=== PATIENT | male | born 1995 | race Two or more races ===

== ENCOUNTER 2017-01-31 18:08 | Emergency (ER) | payer MEDICAID, OTHER ==
--- NOTE | 2017-01-31 19:47 | ER Document Report ---
ED Extremity Problem, Lower - General Chief Complaint: Ankle Pain Stated Complaint: ANKLE PAIN Time Seen by Provider: 01/31/17 19:28 Mode of Arrival: Wheelchair Information source: Patient Notes: 22-year-old male presents to ED for complaint of right ankle pain. Patient states he was drinking last night and he fell injuring his right ankle. He states that every time he had a broken bone in the past he is always called in ahead of time and he knows he has broken his ankle again. TRAVEL OUTSIDE OF THE [place] IN LAST 30 DAYS: No - HPI Patient complains to provider of: Injury, Pain, Swelling Location: Ankle - Right Occurred: Yesterday Where: Outdoors, Public place Onset/Duration: Gradual, Persistent Quality of pain: Achy, Throbbing Severity: Moderate Pain Level: 4 Context: Fell, Twisted Recent injury: Yes Associated symptoms: Painful ambulation Exacerbated by: Movement, Walking Relieved by: Nothing - Related Data Allergies/Adverse Reactions: methylphenidate HCl [From Concerta] Allergy (Verified 01/31/17 18:14) risperidone [From Risperdal] Allergy (Verified 01/31/17 18:14) Past Medical History - General Information source: Patient - Social History Smoking Status: Current Every Day Smoker Cigarette use (# per day): Yes - 3 cigarettes a day Chew tobacco use (# tins/day): No Smoking Education Provided: Yes - Less than 2 minutes Frequency of alcohol use: Occasional Drug Abuse: None 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 denies: COPD , CVA, Malignancy, Thyroid Disfunction Patient has suicidal ideation: No Patient has homicidal ideation: No - Past Medical History Cardiac Medical History: Reports: Hx Hypercholesterolemia Pulmonary Medical History: Reports: Hx Asthma EENT Medical History: Reports: None Neurological Medical History: Reports: None Endocrine Medical History: Reports: None Renal/ Medical History: Reports: None Malignancy Medical History: Reports None GI Medical History: Reports: None Musculoskeltal Medical History: Reports Hx Musculoskeletal Deformity, Reports Hx Musculoskeletal Trauma Skin Medical History: Reports None Psychiatric Medical History: Reports: Hx Anxiety, Hx Attention Deficit Hyperactivity Disorder, Hx Bipolar Disorder, Hx Depression, Hx Obsessive Compulsive Disorder, Hx Post Traumatic Stress Disorder, Other - Internal explosive disorder Traumatic Medical History: Reports: Hx Fractures - Multiple Surgical Hx: Negative Past Surgical History: Reports: None - Immunizations Immunizations up to date: Yes Hx Diphtheria, Pertussis, Tetanus Vaccination: Yes Review of Systems - Review of Systems Constitutional: No symptoms reported EENT: No symptoms reported Cardiovascular: No symptoms reported Respiratory: No symptoms reported Gastrointestinal: No symptoms reported Genitourinary: No symptoms reported Male Genitourinary: No symptoms reported Musculoskeletal: Ankle swelling - Right Skin: Change in color - Ecchymosis right ankle Hematologic/Lymphatic: No symptoms reported Neurological/Psychological: No symptoms reported -: Yes All other systems reviewed and negative Physical Exam - Vital signs Vitals: Temp Pulse Resp BP Pulse Ox 98.4 F 95 18 155/79 H 98 01/31/17 18:14 01/31/17 18:14 01/31/17 18:14 01/31/17 18:14 01/31/17 18:14 Interpretation: Normal - General General appearance: Appears well, Alert - HEENT Head: Normocephalic, Atraumatic Eyes: Normal Pupils: PERRL - Respiratory Respiratory status: No respiratory distress Chest status: Nontender Breath sounds: Normal Chest palpation: Normal - Cardiovascular Rhythm: Regular Heart sounds: Normal auscultation Murmur: No - Abdominal Inspection: Normal Distension: No distension Bowel sounds: Normal Tenderness: Nontender Organomegaly: No organomegaly - Back Back: Normal, Nontender - Extremities General upper extremity: Normal inspection, Nontender, Normal color, Normal ROM , Normal temperature General lower extremity: Normal temperature. No: Annalise's sign Ankle: Tender, Ecchymosis, Edema, Limited ROM. No: Instability, Laceration, Positive Holley's test, Unable to bear weight - Painful ambulation Foot: Tender - Neurological Neuro grossly intact: Yes Cognition: Normal Orientation: AAOx4 Caitlin Coma Scale Eye Opening: Spontaneous [place] Coma Scale Verbal: Oriented Caitlin Coma Scale Motor: Obeys Commands Caitlin Coma Scale Total: 15 Speech: Normal Motor strength normal: LUE, RUE, LLE, RLE Sensory: Normal - Psychological Associated symptoms: Normal affect, Normal mood - Skin Skin Temperature: Warm Skin Moisture: Dry Skin Color: Normal Course - Re-evaluation Re-evalutation: 01/31/17 20:29 X-ray discussed with patient and written report given to patient. Patient was treated with an [place] wrap, stirrup splint, and crutches. Patient was offered ibuprofen instead he did not want it. Instructed patient use ibuprofen over-the -counter for his pain elevate and ice and to follow-up with orthopedics. - Vital Signs Vital signs: Temp Pulse Resp BP Pulse Ox 98.3 F 78 18 113/79 96 01/31/17 20:43 01/31/17 20:43 01/31/17 20:43 01/31/17 20:43 01/31/17 20:43 - Diagnostic Test Radiology reviewed: Image reviewed, Reports reviewed Procedures - Immobilization Right Ankle Time completed: 20:45 Pre-Proc Neuro Vasc Exam: Normal Immobilizer type: Los wrap, Ankle stirrup, Crutches Performed by: PCT Post-Proc Neuro Vasc Exam: Normal Alignment checked and good: Yes Discharge - Discharge Clinical Impression: Right ankle sprain Qualifiers: Encounter type: initial encounter Involved ligament of ankle: unspecified ligament Qualified Code(s): S93.401A - Sprain of unspecified ligament of right ankle, initial encounter Condition: Stable Disposition: HOME, SELF-CARE Additional Instructions: SPRAINED ANKLE: Your sprained ankle results from stretching or tearing of the ligaments which support the ankle. This usually results from twisting the foot inward and under. The ligaments will require time and protection in order to heal properly. Many ankle sprains are quite disabling, and should be taken seriously. The usual treatment for an ankle sprain is cold packs; protection with tape , splints, or wraps; elevation; and staying off the ankle for at least a day. As the ankle improves, you can walk IF it's not painful to bear weight. Sports are best postponed until healing is complete. More serious sprains usually require strengthening exercises after early healing. Your physician has assessed the seriousness of the ligament injury to your ankle. However, the treatment may change, depending on how your ankle progresses. If further exams were recommended, it is important that you follow through. Call the doctor if your foot becomes numb, painful, or severely swollen. LOS WRAP: A compression dressing (los wrap) has been placed. This helps hold the area still. It limits swelling and internal bleeding. The wrap should be comfortably snug -- not tight. You should feel a sense of pressure, but not severe pain under the wrap. Unless the physician tells you otherwise, you can adjust the wrap for comfort. If the wrap causes symptoms suggesting it's too tight -- uncomfortable pressure, swelling or discoloration beyond the wrap, numbness, or severe pain - - you must loosen the wrap. If these symptoms don't resolve promptly, return for re-evaluation. ANKLE STIRRUP SPLINT: You are to use an ankle brace called a stirrup splint. This type of brace allows you to place greater stresses on the ankle without risk of re-injury, and is often used for more severe ankle injuries such as avulsion fractures and ligament ruptures. The splint can be worn over a sock or tape. For proper support, wear the splint with a shoe over it. It's important that the splint fit properly. Adjust the heel tension, if needed. If your splint has air bladders, peel back the bottom of each air bladder, then move the Velcro attachment of the heel strap up or down. Air bladder pressure can be adjusted by pulling up the valve at the top, threading the air tube down into the main bladder, then blowing air into the bladder or squeezing it out. The two sides of the stirrup can be moved forward or back on your ankle by changing the attachment of the main straps. If you are unable to use the ankle comfortably in the splint, return for re -evaluation. USE OF CRUTCHES: The doctor has recommended that you not bear weight at this time. You will need to use crutches. Adjust the crutches so the tops come to about two inches under the armpit while you are standing upright. Use your hands -- not your armpits -- to support your weight. To get into a chair, support yourself with one crutch on the injured side. Hold the chair with the other hand, then lower yourself while putting all your weight on the good leg. Going up stairs is `good leg up, step up, then bring up crutches and bad leg.' Down stairs is `bad leg and crutches down, then bring good leg down.' If you develop numbness or swelling in an arm or hand, you are using the crutches incorrectly. Return if you are having any problems with the crutches. ICE & ELEVATION: Apply ice packs frequently against the painful area. Many different schedules are recommended, such as "20 minutes on, 20 minutes off" or "one hour ice, two hours rest." If you need to work, you may need to go longer between ice treatments. You should plan to have the area ice packed AT LEAST one- fourth of the time. The ice should be applied over the wrap, tape, or splint, or over a layer of cloth -- not directly against the skin. Some ice bags have a built-in cloth and can be put directly on the skin. Your injured part should be elevated as much as possible over the next 48 hours. Try to keep the injury above the level of the heart. Avoid use of the injured area. Elevation and rest will decrease the swelling. USE OF [id number] IBUPROFEN: Ibuprofen (Advil, Nuprin, Medipren, Motrin IB) is a medication for fever and pain control. In addition, it has anti- inflammatory effects which may be beneficial, especially in the treatment of injuries. It's best to take ibuprofen with food. Persons with ulcer disease or allergy to aspirin should notify their physician of this before taking ibuprofen. Ibuprofen can be given every four to six hours, for a total of four doses daily. Age Pain or fever dose Antiinflammatory dose 6-8 yr 200 mg (1 tab) 200 mg (1 tab) 9-11 yr 200 mg (1 tab) 200-400 mg (1-2 tab) 11-14 yr 200-400 mg (1-2 tab) 400 mg (2 tab) 15-adult 400 mg (2 tab) 600 mg (3 tab) ORAL NARCOTIC MEDICATION: You have been given a [place] dispense pack for pain control. This medication is a narcotic. It's best taken with food, as nausea can result if taken on an empty stomach. Don't operate machinery or drive within six hours of taking this medication. Do not combine this medicine with alcohol, or with any medication which can cause sedation (such as cold tablets or sleeping pills) unless you get permission from the physician. Narcotics tend to cause constipation. If possible, drink plenty of fluids and eat a diet high in fiber and fruits. Please be aware that prescription narcotics also have the potential for abuse. People become addicted to these medications because of the general sense of wellbeing that they induce. This feeling along with a significant reduction in tension, anxiety, and aggression provides a stimulating seductive quality to these drugs. Once your pain is under control, we encourage you to discard your unused narcotics. FOLLOW-UP CARE: If you have been referred to a physician for follow-up care, call the physician s office for an appointment as you were instructed or within the next two days. If you experience worsening or a significant change in your symptoms, notify the physician immediately or return to the Emergency Department at any time for re-evaluation. Forms: Elevated Blood Pressure, Smoking Cessation Education, Return to Work Referrals: ANA SANTIAGO MD [ACTIVE STAFF] - Follow up as needed
--- NOTE | 2017-01-31 20:20 | RADIOLOGY REPORT (SQ) ---
EXAM DESCRIPTION: FOOT RIGHT COMPLETE COMPLETED DATE/TIME: 01/31/2017 8:07 pm REASON FOR STUDY: fall pain COMPARISON: 01/10/2015 NUMBER OF VIEWS: Three views. TECHNIQUE: AP, lateral and oblique radiographic images acquired of the right foot. LIMITATIONS: None. FINDINGS: MINERALIZATION: Normal. BONES: No acute fracture or dislocation. No worrisome bone lesions. JOINTS: No effusions. SOFT TISSUES: No soft tissue swelling. No foreign body. OTHER: No other significant finding. IMPRESSION: NEGATIVE STUDY OF THE RIGHT FOOT. NO RADIOGRAPHIC EVIDENCE OF ACUTE INJURY. TECHNICAL DOCUMENTATION: JOB ID: [id number] [email or web address]- All Rights Reserved
--- NOTE | 2017-01-31 20:21 | RADIOLOGY REPORT (SQ) ---
EXAM DESCRIPTION: ANKLE RIGHT COMPLETE COMPLETED DATE/TIME: 01/31/2017 8:07 pm REASON FOR STUDY: fall pain COMPARISON: Right foot films same date NUMBER OF VIEWS: Three views. TECHNIQUE: AP, lateral, and oblique radiographic images acquired of the right ankle. LIMITATIONS: None. FINDINGS: MINERALIZATION: Normal. BONES: No acute fracture or dislocation. No worrisome bone lesions. JOINTS: No effusions. SOFT TISSUES: No soft tissue swelling. No foreign body. OTHER: No other significant finding. IMPRESSION: NEGATIVE STUDY OF THE RIGHT ANKLE. NO RADIOGRAPHIC EVIDENCE OF ACUTE INJURY. TECHNICAL DOCUMENTATION: JOB ID: [id number] [employer]- All Rights Reserved
[2017-01-31 20:45] VITALS: BP 113/79
== END 2017-01-31 20:45 | disposition home or self-care (01) ==
LOC: ER 18:08
DX: S93.401A Sprain of unspecified ligament of right ankle, initial encounter (principal); M25.571 Pain in right ankle and joints of right foot; W19.XXXA Unspecified fall, initial encounter; J45.909 Unspecified asthma, uncomplicated; F17.210 Nicotine dependence, cigarettes, uncomplicated; Z71.6 Tobacco abuse counseling; Z88.8 Allergy status to other drugs, medicaments and biological substances; Z87.81 Personal history of (healed) traumatic fracture
CPT/HCPCS: 99283; 73610; 73630; L1902

== ENCOUNTER 2017-04-12 09:27 | Emergency (ER) | payer SELFPAY ==
[2017-04-12 09:49] VITALS: BP 151/81
--- NOTE | 2017-04-12 10:23 | ER Document Report ---
HPI - HPI Onset/Duration: Persistent Quality of pain: Achy Pain Level: 4 Context: Patient presents complaining of bilateral wrist pain for the past 2 weeks. Patient is right-hand dominant. 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 Patient denies any injury. Patient states pain will occasionally wake him up at night. Associated Symptoms: Other - Bilateral wrist pain Exacerbated by: Movement Relieved by: Remaining still Similar symptoms previously: No Recently seen / treated by doctor: No - ROS ROS below otherwise negative: Yes Systems Reviewed and Negative: Yes All other systems reviewed and negative - CONSTITUTIONAL Constitutional: DENIES: Fever, Chills - EENT EENT: DENIES: Sore Throat, Ear Pain, Eye problems - NEURO Neurology: DENIES: Headache - CARDIOVASCULAR Cardiovascular: DENIES: Chest pain - RESPIRATORY Respiratory: DENIES: Trouble Breathing, Coughing - GASTROINTESTINAL Gastrointestinal: DENIES: Abdominal Pain, Black / Bloody Stools - URINARY Urinary: DENIES: Dysuria, Urgency, Frequency - REPRODUCTIVE Reproductive: DENIES: :, Postmenopausal, Abnormal bleeding / discharge - MUSCULOSKELETAL Musculoskeletal: REPORTS: Extremity pain. 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 denies: COPD , CVA, Malignancy, Thyroid Disfunction Patient has suicidal ideation: No Patient has homicidal ideation: No - Past Medical History Cardiac Medical History: Reports: Hx Hypercholesterolemia Pulmonary Medical History: Reports: Hx Asthma Renal/ Medical History: Denies: Hx Peritoneal Dialysis Musculoskeltal Medical History: Reports Hx Musculoskeletal Deformity, Reports Hx Musculoskeletal Trauma Psychiatric Medical History: Reports: Hx Anxiety, Hx Attention Deficit Hyperactivity Disorder, Hx Bipolar Disorder, Hx Depression, Hx Obsessive Compulsive Disorder, Hx Post Traumatic Stress Disorder Traumatic Medical History: Reports: Hx Fractures - Multiple Past Surgical History: Reports: Hx Orthopedic Surgery - Immunizations Immunizations up to date: Yes Hx Diphtheria, Pertussis, Tetanus Vaccination: Yes Vertical Provider Document - CONSTITUTIONAL Agree With Documented VS: Yes Exam Limitations: No Limitations General Appearance: WD/WN, No Apparent Distress - INFECTION CONTROL TRAVEL OUTSIDE OF THE [place] IN LAST 30 DAYS: No - HEENT HEENT: Atraumatic, Normocephalic - NECK Neck: Normal Inspection, Supple - RESPIRATORY Respiratory: Breath Sounds Normal, No Respiratory Distress O2 Sat by Pulse Oximetry: 97 - CARDIOVASCULAR Cardiovascular: Regular Rate, Regular Rhythm, No Murmur Pulses: Normal: Radial - BACK Back: Normal Inspection - MUSCULOSKELETAL/EXTREMETIES Musculoskeletal/Extremeties: MAEW, FROM, Tender - Bilateral wrist tenderness worse with flexion and extension as well as supination and pronation. No edema , normal skin color and temperature overlying joints. Positive Phalen and Tinel sign., No Edema - NEURO Level of Consciousness: Awake, Alert, Appropriate Motor/Sensory: No Motor Deficit - DERM Integumentary: Warm, Dry Notes: Plantar wart to right foot Course - Re-evaluation Re-evalutation: 04/12/17 10:20 The patient has been informed that they may have pre-hypertension or hypertension based on a blood pressure reading in the emergency department. I recommend that patient call the primary care provider listed on their discharge instructions or a physician of their choice by this week to arrange follow-up for further evaluation of possible pre-hypertension or hypertension. Patient presents with symptoms concerning for overuse injury as well as carpal tunnel syndrome. Will immobilize patient and have him follow-up with orthopedics for further evaluation. - Vital Signs Vital signs: Temp Pulse Resp BP Pulse Ox 98.0 F 78 16 151/81 H 97 04/12/17 09:48 04/12/17 09:48 04/12/17 09:48 04/12/17 09:48 04/12/17 09:48 Procedures - Immobilization Left Wrist Pre-Proc Neuro Vasc Exam: Normal Immobilizer type: Cock-up Performed by: PCT Post-Proc Neuro Vasc Exam: Normal Alignment checked and good: Yes Right Wrist Pre-Proc Neuro Vasc Exam: Normal Immobilizer type: Cock-up Performed by: PCT Post-Proc Neuro Vasc Exam: Normal Alignment checked and good: Yes Discharge - Discharge Clinical Impression: Plantar wart of right foot, Elevated blood pressure reading, Overuse injury Carpal tunnel syndrome Qualifiers: Laterality: bilateral Qualified Code(s): G56.03 - Carpal tunnel syndrome, bilateral upper limbs Condition: Stable Disposition: HOME, SELF-CARE Instructions: Carpal Tunnel Syndrome ([facility]), Plantar Warts ([facility]), Temporary Splint ([facility]) Additional Instructions: Return immediately for any new or worsening symptoms Followup with your primary care provider, call tomorrow to make a followup appointment Follow-up with an orthopedic doctor for further evaluation of bilateral wrist pain. Limit repetitive movements of the wrist Wear splint for the next 4-5 days and then remove. If still having pain follow- up with orthopedics Prescriptions: Naproxen [Naprosyn 250 Nmg Tablet] 1 tab PO BID #14 tablet Forms: Elevated Blood Pressure, Return to Work Referrals: [facility] [Provider Group] - Follow up as needed [facility] [Provider Group] - Follow up in 3-5 days
== END 2017-04-12 10:30 | disposition home or self-care (01) ==
LOC: ER 09:27
DX: G56.03 Carpal tunnel syndrome, bilateral upper limbs (principal); B07.0 Plantar wart; R03.0 Elevated blood-pressure reading, without diagnosis of hypertension; M25.531 Pain in right wrist; M25.532 Pain in left wrist; X50.3XXA Overexertion from repetitive movements, initial encounter; F17.200 Nicotine dependence, unspecified, uncomplicated
CPT/HCPCS: 99283; L3908 ×2

== ENCOUNTER 2018-05-18 09:10 | Emergency (ER) | payer SELFPAY ==
[2018-05-18 09:40] VITALS: BP 153/88
--- NOTE | 2018-05-18 10:27 | ER Document Report ---
ED Hand/Wrist Injury - General Chief Complaint: Hand Pain Stated Complaint: HAND PAIN Time Seen by Provider: 05/18/18 10:10 Primary Care Provider: [facility] [Provider Group] - Follow up as needed Mode of Arrival: Ambulatory Information source: Patient Notes: 23-year-old male presents to ED for complaint of bilateral hand pain as well as wrist pain. He has had this pain multiple times in the past and has been seen multiple times in the past. He states that he had cockup splints applied a year ago and then went to jail since then and and lost them. He states he works in [employer] and at [employer] and does a lot of repetitive motion with his wrist. Patient is alert oriented respirations regular and unlabored speaking in full sentences. TRAVEL OUTSIDE OF THE [place] IN LAST 30 DAYS: No - HPI Injury to: Hand, Wrist Onset: Other - More than a year Timing: Waxing and waning Quality of pain: Achy, Sharp, Other - Shingles at times Severity: Severe - Related Data Allergies/Adverse Reactions: methylphenidate [From Ritalin] Allergy (Verified 05/18/18 09:11) methylphenidate HCl [From Concerta] Allergy (Verified 05/18/18 09:11) risperidone [From Risperdal] Allergy (Verified 05/18/18 09:11) Past Medical History - General Information source: Patient - Social History Smoking Status: Former Smoker Frequency of alcohol use: None Drug Abuse: Marijuana Occupation: [employer] and [employer] Lives with: Family Family History: Arthritis, CAD, DM, Hyperlipidemia, Hypertension. denies: COPD, CVA, Malignancy, Thyroid Disfunction Patient has suicidal ideation: No Patient has homicidal ideation: No - Past Medical History Cardiac Medical History: Reports: Hx Hypercholesterolemia Pulmonary Medical History: Reports: Hx Asthma EENT Medical History: Reports: None Neurological Medical History: Reports: None Endocrine Medical History: Reports: None Renal/ Medical History: Reports: None Malignancy Medical History: Reports None GI Medical History: Reports: None Musculoskeletal Medical History: Reports Hx Musculoskeletal Deformity, Reports Hx Musculoskeletal Trauma Skin Medical History: Reports None Psychiatric Medical History: Reports: Hx Anxiety, Hx Attention Deficit Hyperactivity Disorder, Hx Bipolar Disorder, Hx Depression, Hx Obsessive Compulsive Disorder, Hx Post Traumatic Stress Disorder Traumatic Medical History: Reports: Hx Fractures - Feet, left leg, both hands multiple Infectious Medical History: Reports: None Surgical Hx: Negative Past Surgical History: Reports: None - Immunizations Immunizations up to date: Yes Hx Diphtheria, Pertussis, Tetanus Vaccination: Yes Review of Systems - Review of Systems Constitutional: No symptoms reported EENT: No symptoms reported Cardiovascular: No symptoms reported Respiratory: No symptoms reported Gastrointestinal: No symptoms reported Genitourinary: No symptoms reported Male Genitourinary: No symptoms reported Musculoskeletal: Other - Chronic bilateral hand pain possible carpal tunnel Skin: No symptoms reported Hematologic/Lymphatic: No symptoms reported Neurological/Psychological: No symptoms reported -: Yes All other systems reviewed and negative Physical Exam - Vital signs Vitals: Temp Pulse Resp BP Pulse Ox 98.2 F 89 16 153/88 H 97 05/18/18 09:38 05/18/18 09:38 05/18/18 09:38 05/18/18 09:38 05/18/18 09:38 Interpretation: Normal - General General appearance: Appears well, Alert - HEENT Head: Normocephalic, Atraumatic Eyes: Normal Pupils: PERRL - Respiratory Respiratory status: No respiratory distress Chest status: Nontender Breath sounds: Normal Chest palpation: Normal - Cardiovascular Rhythm: Regular Heart sounds: Normal auscultation Murmur: No - Abdominal Inspection: Normal Distension: No distension Bowel sounds: Normal Tenderness: Nontender Organomegaly: No organomegaly - Back Back: Normal, Nontender - Extremities General upper extremity: Normal color, Normal ROM, Normal temperature General lower extremity: Normal inspection, Nontender, Normal color, Normal ROM, Normal temperature, Normal weight bearing. No: Annalise's sign Wrist: Tender. No: Limited ROM - Pain with range of motion causes pain down the fingers Hand: Tender - Range of motion, No evidence of human bite - Very minimal to right, No evidence of FB - with range of motion, Swelling. No: Abrasion, Deformity, Dislocation, Ecchymosis, Instability, Laceration, Nail injury, Tendon deficit - Neurological Neuro grossly intact: Yes Cognition: Normal Orientation: AAOx4 Caitlin Coma Scale Eye Opening: Spontaneous [place] Coma Scale Verbal: Oriented [place] Coma Scale Motor: Obeys Commands Acworth Coma Scale Total: 15 Speech: Normal Motor strength normal: LUE, RUE, LLE, RLE Sensory: Normal - Psychological Associated symptoms: Normal affect, Normal mood - Skin Skin Temperature: Warm Skin Moisture: Dry Skin Color: Normal Course - Vital Signs Vital signs: Temp Pulse Resp BP Pulse Ox 98.2 F 89 16 153/88 H 97 05/18/18 09:38 05/18/18 09:38 05/18/18 09:38 05/18/18 09:38 05/18/18 09:38 Procedures - Immobilization left wrist Time completed: 10:40 Pre-Proc Neuro Vasc Exam: Normal Immobilizer type: Cock-up Performed by: PCT Post-Proc Neuro Vasc Exam: Normal Alignment checked and good: Yes Right Wrist Time completed: 10:40 Immobilizer type: Cock-up Performed by: PCT Post-Proc Neuro Vasc Exam: Normal Alignment checked and good: Yes Discharge - Discharge Clinical Impression: bilateral hand pain chronic Condition: Stable Disposition: HOME, SELF-CARE Instructions: Family Physicians / Practices Additional Instructions: You were seen today for bilateral hand and wrist pain. You have been seen for this in the past. It is very important that you follow- up with orthopedic to find out the reason for your chronic pain and numbness to the hands. Symptoms sound like carpal tunnel and if it is it needs to be treated. Carpal Tunnel Syndrome Your examination suggests carpal tunnel syndrome. This syndrome is due to pressure on a nerve in the wrist. The pressure may be caused by an old injury, hard work using the wrist, work involving repeated motions of the hand, wrist positions that keep pressure on the joint, or arthritis in the wrist. Typical symptoms are tingling, numbness, and pain in the palm, thumb, index and middle fingers, and one side of the ring finger. Often a splint, ice packs, and antiinflammatory medication make the sy mptoms go away. If the physician feels that your problem is chronic, you will be referred to a specialist for further care. If symptoms do not go away, carpal tunnel syndrome may require surgery. You should call the doctor if pain increases, if you develop difficulty using the thumb or fingers, or if major swelling occurs. Anti-Inflammatory Medication You have received a prescription for an antiinflammatory agent. This is an excellent, safe drug for pain control. In addition, it has potent antiinflammatory effects which are beneficial, especially in the treatment of injuries, arthritis, or tendonitis. It's best to take this medicine with food. Persons with ulcer disease or allergy to aspirin should notify their physician of this before taking this drug. Take the medication exactly as prescribed. Don't take additional doses unless instructed to do so by your doctor. If you develop wheezing, shortness of breath, hives, faintness, stomach pain, vomiting, or dark black stools, return for re-evaluation at once. Splint Precautions A splint has been placed. This will protect the area while healing begins. Your problem does NOT normally require a cast. It MUST, however, be held still! Keep the splint on ALL THE TIME until instructed to remove it by the doctor. As you begin to use the area, be careful. You shouldn't do anything which causes discomfort -- you may disturb the injury even with the splint in place. After the initial period of rest and elevation, if splint does not prevent pain when you move, come back. You may require placement of a different splint, or a cast. If there is unexpected severe pain, or numbness, discoloration, or swelling beyond the splint, you should return at once. If you feel that the splint has broken or become loose, come back. FOLLOW-UP CARE: If you have been referred to a physician for follow-up care, call the physicians office for an appointment as you were instructed or within the next two days. If you experience worsening or a significant change in your symptoms, notify the physician immediately or return to the Emergency Department at any time for re-evaluation. Prescriptions: Naproxen 500 mg PO BIDP PRN #20 tablet PRN Reason: Forms: Elevated Blood Pressure, Smoking Cessation Education, Return to Work Referrals: [facility] [Provider Group] - Follow up as needed
== END 2018-05-18 10:25 | disposition home or self-care (01) ==
LOC: ER 09:10
DX: M79.641 Pain in right hand (principal); M79.642 Pain in left hand; G89.29 Other chronic pain; M25.531 Pain in right wrist; M25.532 Pain in left wrist; J45.909 Unspecified asthma, uncomplicated; Z88.8 Allergy status to other drugs, medicaments and biological substances; Z87.891 Personal history of nicotine dependence
CPT/HCPCS: 99283; L3908 ×2

== ENCOUNTER 2019-08-18 01:22 | Inpatient (IN) | payer MEDICAID ==
[2019-08-18] MEDS ORDERED: PHENYTOIN SODIUM INJ/PF 250 MG/5 ML SDV IV ONE (01:32)
[2019-08-18] MEDS ORDERED: LEVETIRACETAM 1000 MG/NACL-ISO 1,000 MG/100 ML RTUPB IV ONE (01:33)
--- NOTE | 2019-08-18 01:36 | ER Document Report ---
ED General - General Chief Complaint: Overdose Stated Complaint: POSSIBLE OVERDOSE Time Seen by Provider: 08/18/19 01:27 Mode of Arrival: Medic Information source: Emergency Med Personnel Cannot obtain history due to: Intubated, Altered mental status TRAVEL OUTSIDE OF THE [place] IN LAST 30 DAYS: No - HPI Onset: Just prior to arrival Onset/Duration: Sudden Quality of pain: Other - unknown if any pain Associated symptoms: Other - persistent seizure for over 30 min Exacerbated by: Other - IV Drug Use Relieved by: Denies Similar symptoms previously: No Recently seen / treated by doctor: No Notes: 24 year old male with a history of IV Drug Use, Bipolar, Anxiety, PTSD, ADHD, OCD brought to the ER for concern of an IV Drug Overdose. The patient was found unresponsive by his family in a bathroom. The family administered intranasal narcan prior to EMS arrival. The patient apparently started seizing and throwing up after receiving the narcan. The patient had been seizing 20 min prior to EMS arrival and another 10min while EMS was on scene. EMS administered Versed and Ativan which stopped the seizure and they then intubated the patient with Etomidate and Succinylcholine and gave a bolus of Ketamine for sedation. The patient had a fever to 101F with EMS. EMS gave IV fluids and transported the patient to the ER being bagged. - Related Data Allergies/Adverse Reactions: methylphenidate [From Ritalin] Allergy (Verified 05/18/18 09:11) methylphenidate HCl [From Concerta] Allergy (Verified 05/18/18 09:11) risperidone [From Risperdal] Allergy (Verified 05/18/18 09:11) Past Medical History - General Information source: Emergency Med Personnel Cannot obtain history due to: Intubated, Altered mental status - Social History Smoking Status: Unknown if Ever Smoked Frequency of alcohol use: Unknown Drug Abuse: Other - Known IV Drug Abuser per EMS Lives with: Family Family History: Arthritis, CAD, DM, Hyperlipidemia, Hypertension. denies: COPD, CVA, Malignancy, Thyroid Disfunction - Past Medical History Cardiac Medical History: Reports: Hx Hypercholesterolemia Pulmonary Medical History: Reports: Hx Asthma Renal/ Medical History: Denies: Hx Peritoneal Dialysis Musculoskeletal Medical History: Reports Hx Musculoskeletal Deformity, Reports Hx Musculoskeletal Trauma Psychiatric Medical History: Reports: Hx Anxiety, Hx Attention Deficit Hyperactivity Disorder, Hx Bipolar Disorder, Hx Depression, Hx Obsessive Compulsive Disorder, Hx Post Traumatic Stress Disorder Traumatic Medical History: Reports: Hx Fractures - Feet, left leg, both hands multiple Past Surgical History: Reports: Hx Orthopedic Surgery - Immunizations Immunizations up to date: Yes Hx Diphtheria, Pertussis, Tetanus Vaccination: Yes Review of Systems - Review of Systems Constitutional: Fever EENT: No symptoms reported Cardiovascular: No symptoms reported Respiratory: Cough, Other - aspiration Gastrointestinal: Vomiting Genitourinary: No symptoms reported Male Genitourinary: No symptoms reported Musculoskeletal: No symptoms reported Skin: Other - IV Drug Track Oro Hematologic/Lymphatic: No symptoms reported Neurological/Psychological: Seizure, Lost consciousness, Other - Altered -: Yes All other systems reviewed and negative Physical Exam - Vital signs Vitals: Temp 100.9 F H 08/18/19 03:06 - Notes Notes: GENERAL: Intubated on ER arrival being bagged. Sedated and unresponsive. Blood and vomit on shirt. HEAD: Atraumatic, normocephalic. EYES: Pupils equal round and reactive to light, extraocular movements intact, sclera anicteric, conjunctiva are normal. ENT: External Ears normal, nares patent, oropharynx clear without exudates. Moist mucous membranes. NECK: Normal range of motion, supple without lymphadenopathy or JVD. LUNGS: Course bilateral breath sounds clear to auscultation bilaterally and equal. No wheezes rales or rhonchi. HEART: Tachycardic, normal rhythm without murmurs, rubs or gallops. ABDOMEN: Soft, nontender, normoactive bowel sounds. No guarding, no rebound. No masses appreciated. EXTREMITIES: Normal range of motion, no pitting or edema. No clubbing or cyanosis. NEUROLOGICAL: Cranial nerves II through XII grossly intact. Normal speech, normal gait. PSYCH: Normal mood, normal affect. SKIN: Diffuse IV Drug Track Oro Noted otherwise skin is warm, dry, normal turgor, no rashes or lesions noted. Course - Re-evaluation Re-evalutation: 08/18/19 02:03 The patient arrived intubated and sedated and he was tachycardic and febrile. The patient apparently had been using IV Drugs and became unresponsive at home. His family reportedly administered intranasal narcan which woke him up some but the patient started to seize and vomit and he most likely aspirated. The patient has no known seizure history. Patient most likely seizure from rapid drug withdrawal. Fever and elevated WBC and elevated lactic acid could be do to aspiration, IV drug use, or recent seizure. Will administer fluids, broad spectrum antibiotics to cover aspiration and IV drug pathogens, administer rectal tylenol, and will obtain a Head CT. 08/18/19 03:21 Patient required critical care time due to multiple re-evaluations, multiple interventions (fluids, antibiotic, various medications adjustments for sedation), and speaking with the ICU. Patient admitted to ICU for further treatment and care once he was stabilized in the ER. CT head showed no acute process but chest xray concerning for possible right sided infiltrate. - Vital Signs Vital signs: Temp Pulse Resp BP Pulse Ox 100.9 F H 08/18/19 03:06 - Laboratory Result Diagrams: 08/18/19 01:27 08/18/19 01:27 Laboratory results interpreted by me: 08/18/19 08/18/19 08/18/19 01:27 01:27 01:27 WBC 22.4 H Abs Neuts (Manual) 15.7 H Abs Lymphs (Manual) 4.9 H Carbonic Acid ABG pH ABG pCO2 ABG pO2 ABG O2 Saturation Glucose 185 H POC Glucose Lactic Acid 4.4 H AST 132 H ALT 287 H Urine Protein Urine Blood Urine Ascorbic Acid Salicylates < 1.0 L Acetaminophen < 10 L 08/18/19 08/18/19 08/18/19 01:27 01:30 01:47 WBC Abs Neuts (Manual) Abs Lymphs (Manual) Carbonic Acid 1.47 H ABG pH 7.29 L ABG pCO2 48.8 H ABG pO2 158.1 H ABG O2 Saturation 98.8 H Glucose POC Glucose 164 H Lactic Acid AST ALT Urine Protein 100 H Urine Blood SMALL H Urine Ascorbic Acid 20 H Salicylates Acetaminophen - Diagnostic Test Radiology reviewed: Image reviewed, Reports reviewed - EKG Interpretation by Me EKG shows normal: Sinus rhythm, Intervals, QRS Complexes Rate: Tachycardia Rhythm: NSR [place]/QRS: Right axis deviation Additional EKG results interpreted by me: 08/18/19 01:38 q waves in II, III, aVF Critical Care Note - Critical Care Note Total time excluding time spent on procedures (mins): 70 Discharge - Discharge Clinical Impression: Seizure Drug overdose Qualifiers: Encounter type: initial encounter Injury intent: accidental or unintentional Qualified Code(s): T50.901A - Poisoning by unspecified drugs, medicaments and biological substances, accidental (unintentional), initial encounter Fever Qualifiers: Fever type: unspecified Qualified Code(s): R50.9 - Fever, unspecified Aspiration into airway Qualifiers: Encounter type: initial encounter Qualified Code(s): T17.908A - Unspecified foreign body in respiratory tract, part unspecified causing other injury, initial encounter Condition: Critical Disposition: ADMITTED INPATIENT Admitting Provider: Valeria (Cafeteria Manager) Unit Admitted: ICU
[2019-08-18] MEDS: FENTANYL CITRATE INJ/PF 100 MCG/2 ML AMPUL IV PRN (01:42)
[2019-08-18] MEDS ORDERED: MIDAZOLAM 2 MG/2 ML INJ IV ONE (01:48)
[2019-08-18] MEDS: MIDAZOLAM HCL 50 MG/100 ML RTUINJ IV PRN ×2 (01:50→17:43)
[2019-08-18] MEDS ORDERED: FENTANYL CITRATE INJ/PF 100 MCG/2 ML AMPUL IV PRN (01:52)
[2019-08-18] MEDS ORDERED: ACETAMINOPHEN 325 MG SUPP.RECT PR ONE (01:53)
[2019-08-18] MEDS: NORMAL SALINE 1000 ML 1,000 ML IV PRN ×2 (02:00→03:06)
[2019-08-18 02:02] LABS: INTERNATIONAL RATION (INR) 1.05; PROTHROMBIN TIME 13.7 SEC (11.4-15.4)
[2019-08-18 02:03] LABS: HEMATOCRIT 47.6 % (37.9-51.0); HEMOGLOBIN 16.7 g/dL (13.5-17.0); MEAN CORPUSCULAR HEMOGLOBIN 31.7 pg (27.0-33.4); MEAN CORPUSCULAR HGB CONC 35.1 g/dL (32.0-36.0); MEAN CORPUSCULAR VOLUME 90 fl (80-97); PLATELET COUNT 345 10^3/uL (150-450); RED BLOOD COUNT 5.26 10^6/uL (4.35-5.55); RED CELL DISTRIBUTION WIDTH 12.9 % (11.5-14.0); WHITE BLOOD COUNT 22.4 10^3/uL (4.0-10.5)
[2019-08-18 02:09] LABS: APPEARANCE,URINE CLOUDY; BILIRUBIN,URINE NEGATIVE (NEGATIVE); COLOR,URINE YELLOW; GLUCOSE, URINE NEGATIVE (NEGATIVE); KETONES,URINE NEGATIVE (NEGATIVE); PROTEIN,URINE 100 mg/dL (NEGATIVE); UROBILINOGEN,URINE NEGATIVE mg/dL (<2.0)
[2019-08-18] MEDS ORDERED: VANCOMYCIN HCL INJ 1000 MG VIAL IV ONE (02:11)
[2019-08-18] MEDS ORDERED: PIPERACILLIN/TAZOBACTAM 3.375 GM VIAL IV ONE ×2 (02:11→05:40)
[2019-08-18 02:16] LABS: ALBUMIN 4.8 g/dL (3.5-5.0); ALKALINE PHOSPHATASE 80 U/L (38-126); ANION GAP 14 (5-19); ASPARTATE AMINO TRANSFERASE 132 U/L (17-59); BILIRUBIN,TOTAL 0.4 mg/dL (0.2-1.3); BLOOD UREA NITROGEN 18 mg/dL (7-20); CALCIUM 9.3 mg/dL (8.4-10.2); CARBON DIOXIDE 22 mmol/L (22-30); CHLORIDE 103 mmol/L (98-107); GLUCOSE 185 mg/dL (75-110); POTASSIUM 3.9 mmol/L (3.6-5.0); TOTAL PROTEIN 8.2 g/dL (6.3-8.2)
[2019-08-18 02:17] LABS: ACETAMINOPHEN < 10 ug/mL (10-30); ALCOHOL < 10 mg/dL (NONE DETECTED); SALICYLATE < 1.0 mg/dL (2.0-20.0)
[2019-08-18 02:26] LABS: URINE AMPHETAMINES SCREEN NEGATIVE; URINE BARBITURATES SCREEN NEGATIVE; URINE COCAINE SCREEN NEGATIVE; URINE MARIJUANA (THC) SCREEN NEGATIVE; URINE METHADONE SCREEN NEGATIVE; URINE PHENCYCLIDINE SCREEN NEGATIVE
[2019-08-18 02:27] LABS: ABSOLUTE LYMPHOCYTES# (MANUAL) 4.9 10^3/uL (0.5-4.7); ABSOLUTE MONOCYTES # (MANUAL) 1.3 10^3/uL (0.1-1.4); BASOPHILS % (MANUAL) 1 % (0-2); EOSINOPHILS % (MANUAL) 1 % (0-6); LYMPHOCYTES % (MANUAL) 20 % (13-45); MONOCYTES % (MANUAL) 6 % (3-13); SEGMENTED NEUTROPHILS % (MAN) 70 % (42-78); TOTAL CELLS COUNTED 100
[2019-08-18 02:28] LABS: PLATELET COMMENT ADEQUATE
--- NOTE | 2019-08-18 02:28 | RADIOLOGY REPORT (SQ) ---
CHEST 1 VIEW on 08/18/2019 at 2:10 AM CLINICAL INDICATION: Intubated, aspiration COMPARISON: None FINDINGS: ET tube tip is in the mid thoracic trachea approximately 3.1 cm above the level of the adali. NG tube extends into the upper stomach in good position. Heart is upper limits normal for size. Hilar and mediastinal contours are within normal limits. There is minimal opacity in the right midlung consistent with atelectasis or early pneumonia. The lungs are otherwise clear. No bony abnormality is noted. IMPRESSION: Mild atelectasis or early pneumonia in the right midlung.
[2019-08-18 02:30] LABS: URINE BENZODIAZEPINES SCREEN UNCONFIRMED POSITIVE
[2019-08-18 02:46] LABS: ARTERIAL BLOOD BASE EXCESS -3.9 mmol/L; ARTERIAL BLOOD H2CO3 1.47 mmol/L (1.05-1.35); ARTERIAL BLOOD HCO3 23.2 mmol/L (20-24); ARTERIAL BLOOD O2 SATURATION 98.8 % (94-98); ARTERIAL BLOOD PCO2 48.8 mmHg (35-45); ARTERIAL BLOOD PH 7.29 (7.35-7.45); ARTERIAL BLOOD PO2 158.1 mmHg (80-100); ARTERIAL BLOOD TOTAL CO2 24.6 mmol/L (23-27)
[2019-08-18 02:47] LABS: ARTERIAL BLOOD FIO2 100%
--- NOTE | 2019-08-18 03:08 | RADIOLOGY REPORT (SQ) ---
EXAM DESCRIPTION: CT HEAD WITHOUT IV CONTRAST COMPLETED DATE/TME: 08/18/2019 01:31 CLINICAL HISTORY: 24 years Male, eval for cause of seizure and AMS. hx of IV drug injection vicodin COMPARISON: 03/18/14 TECHNIQUE: No contrast. Coronal and sagittal reformat. This exam was performed according to our departmental dose-optimization program, which includes automated exposure control, adjustment of the mA and/or kV according to patient size and/or use of iterative reconstruction technique. FINDINGS: No hemorrhage or infarct. No mass, mass effect, or midline shift. Endotracheal tube and enteric tube partially imaged. Small ventricles, chronic, probably developmental. Brain and extra-axial structures appear otherwise intact. IMPRESSION: No acute findings.
[2019-08-18] MEDS ORDERED: NORMAL SALINE 1000 ML 1,000 ML IV ONE (04:21)
[2019-08-18] MEDS ORDERED: FENTANYL CITRATE INJ/PF 100 MCG/2 ML AMPUL IV ONE ×4 (04:35→12:30)
--- NOTE | 2019-08-18 05:31 | CRITICAL CARE ADMISSION REPORT ---
<EVELYN DEAN - Last Filed: 08/18/19 05:27> HPI Date:: 08/18/19 Time:: 05:00 Reason for ICU Reason:: Respiratory failure, opioid overdose. Admission Date/Time & PCP: 24-year-old male, history of IV DA, bipolar disorder, PTSD, ADHD, OCD. Patient was found unresponsive by his family who administered intranasal Narcan. Following administration, he began seizing for 20 minutes prior to EMS arrival and continued for 10 additional minutes in the presence of EMS. EMS administered Versed and Ativan and he was intubated for airway protection and respiratory failure. He did vomit prior to intubation. Patient was febrile and upon arrival to the ED, had a WBC of 22 and lactate level of 4.4. CT of his head was negative for any acute pathology. Possible right sided atelectasis versus infiltrates on chest x-ray. Patient is being admitted to the intensive care unit for respiratory failure in the setting of narcotic overdose and seizures. - Diagnosis/Plan (1) Respiratory failure requiring intubation Is this a current diagnosis for this admission?: Yes Plan: Respiratory failure secondary to narcotic overdose. * Continue mechanical ventilation and wean as tolerated over the next several hours if possible. * Hold any sedation in the absence of seizure activity. * CXR in a.m. * Obtain ABG and titrate vent settings accordingly. (2) Drug overdose Qualifiers: Encounter type: initial encounter Injury intent: accidental or unintentional Qualified Code(s): T50.901A - Poisoning by unspecified drugs, medicaments and biological substances, accidental (unintentional), initial encounter Is this a current diagnosis for this admission?: Yes Plan: * Continue to hold sedation. * We will hold any Narcan given his secure airway and ventilation. (3) Fever Qualifiers: Fever type: unspecified Qualified Code(s): R50.9 - Fever, unspecified Is this a current diagnosis for this admission?: Yes Plan: Origin of patient's fever is unknown, however, he does have evidence and suspicion for aspiration pneumonia. * Obtain blood and sputum cultures. * Continue empiric antibiotics until culture/sensitivity resulted. * CBC in a.m. (4) Seizure Is this a current diagnosis for this admission?: Yes Plan: Seizure activity followed Narcan administration of unknown dose. CT scan negative for any acute pathology. * Continue Ativan as needed for any further seizures. Past Medical History Cardiac Medical History: Reports: Hyperlipidema Pulmonary Medical History: Reports: Asthma Psychiatric Medical History: Reports: Attention Deficit Hyperactivity Disorder, Bipolar Disorder, Depression, Post Traumatic Stress Disorder Psychiatric History Note: IV drug abuse history. Past Surgical History Past Surgical History: Reports: Orthopedic Surgery Social/Family History - Social History Lives with: Family Smoking Status: Unknown if Ever Smoked Drugs: Other - IVDA, details unknown at this time. - Medication/Allergies Home Medications: No Home Medications 08/18/19 Allergies/Adverse Reactions: methylphenidate [From Ritalin] Allergy (Verified 05/18/18 09:11) methylphenidate HCl [From Concerta] Allergy (Verified 05/18/18 09:11) risperidone [From Risperdal] Allergy (Verified 05/18/18 09:11) Review of Systems ROS unobtainable: Due to endotracheal tube Physical Exam Vital Signs: Temp Pulse Resp BP Pulse Ox 100.8 F H 14 164/91 H 100 08/18/19 03:26 08/18/19 03:26 08/18/19 03:26 08/18/19 03:26 Intake & Output 08/16/19 08/17/19 08/18/19 06:59 06:59 06:59 Intake Total 2101 Balance 2101 Weight 112.9 kg Weight/Height Weight 112.9 kg Height 6 ft General appearance: PRESENT: no acute distress Head exam: PRESENT: normocephalic, other - Dried blood seen around his lips, nose and on the side of his head. Eye exam: PRESENT: EOMI, PERRLA Ear exam: PRESENT: normal external ear exam. ABSENT: bleeding Mouth exam: PRESENT: dry mucosa, neck supple, tongue midline Neck exam: PRESENT: full ROM. ABSENT: carotid bruit Respiratory exam: PRESENT: clear to auscultation ruben. ABSENT: crackles, rhonchi, tachypnea, wheezes Cardiovascular exam: PRESENT: RRR, +S1, +S2 Pulses: PRESENT: normal carotid pulses, +2 pedal pulses bilateral Vascular exam: PRESENT: normal capillary refill GI/Abdominal exam: PRESENT: hypoactive bowel sounds, soft Extremities exam: ABSENT: joint swelling, pedal edema Musculoskeletal exam: PRESENT: full ROM, normal inspection Neurological exam: PRESENT: CN II-XII grossly intact, other - Responds to discomfort. Skin exam: PRESENT: intact Tubes/Lines: PRESENT: Endotracheal Tube Laboratory/Radiographs Laboratory Results: 08/18/19 01:27 08/18/19 01:27 08/18/19 08/18/19 08/18/19 01:27 01:27 01:27 WBC 22.4 H RBC 5.26 Hgb 16.7 Hct 47.6 MCV 90 MCH 31.7 MCHC 35.1 RDW 12.9 Plt Count 345 Seg Neutrophils % Not Reportable Carbonic Acid HCO3/H2CO3 Ratio ABG pH ABG pCO2 ABG pO2 ABG HCO3 ABG O2 Saturation ABG Base Excess FiO2 Sodium 139.2 Potassium 3.9 Chloride 103 Carbon Dioxide 22 Anion Gap 14 BUN 18 Creatinine 1.05 Est GFR ( Amer) > 60 Glucose 185 H Lactic Acid 4.4 H Calcium 9.3 Total Bilirubin 0.4 AST 132 H Alkaline Phosphatase 80 Total Protein 8.2 Albumin 4.8 Urine Color Urine Appearance Urine pH Ur Specific [place] Urine Protein Urine Glucose (UA) Urine Ketones Urine Blood Urine RBC (Auto) 08/18/19 08/18/19 01:27 01:47 WBC RBC Hgb Hct MCV MCH MCHC RDW Plt Count Seg Neutrophils % Carbonic Acid 1.47 H HCO3/H2CO3 Ratio 15:1 ABG pH 7.29 L ABG pCO2 48.8 H ABG pO2 158.1 H ABG HCO3 23.2 ABG O2 Saturation 98.8 H ABG Base Excess -3.9 FiO2 100% Sodium Potassium Chloride Carbon Dioxide Anion Gap BUN Creatinine Est GFR ( Amer) Glucose Lactic Acid Calcium Total Bilirubin AST Alkaline Phosphatase Total Protein Albumin Urine Color YELLOW Urine Appearance CLOUDY Urine pH 5.0 Ur Specific [place] 1.020 Urine Protein 100 H Urine Glucose (UA) NEGATIVE Urine Ketones NEGATIVE Urine Blood SMALL H Urine RBC (Auto) 1 08/18/19 01:27 Troponin I 0.047 Impressions: Chest X-Ray 08/18/19 01:31 IMPRESSION: Mild atelectasis or early pneumonia in the right midlung. Head CT 08/18/19 01:31 IMPRESSION: No acute findings. All labs, radiographs, diagnostic studies and EKGs were personally reviewed: Yes In addition, reports of radiographic and diagnostic studies were read: Yes Critical Time Critical Time (minutes): 70 -: The care of a critically ill patient is dynamic. This note represents a static moment in the admission process. Orders and treatments may be given simultaneously and urgently, and time is not veterans employment representative of the treatment process. This patient requires Critical Care secondary to life threatening organ or limb dysfunction. Without Critical Care services, the patient is at risk for increased mortality and morbidity. <YESENIA SILVEIRA - Last Filed: 08/18/19 18:39> HPI Admission Date/Time & PCP: Admission Date/Time: 08/18/19 03:34 Primary Care Provider: Plan Summary: I personally saw and evaluated the patient after admission by LUCERO Dean. Agree with plans, findings and care. Attempted EEG was thwarted by patient agitation and this was aborted. We will continue to monitor in the ICU for seizure. We will also monitor for appropriateness for vent liberation. Track cruz noted on the left antecubital and patient is right-handed. Patient is legally but has asked us to speak to his mother. Patient is adopted and has a longstanding history of psychiatric disorders in addition to combined effects of recreational drug use. We will transition to Precedex and attempt to wean the ventilator. Watch for seizures. Physical Exam Vital Signs: Temp Pulse Resp BP Pulse Ox 101.1 F H 73 15 99/52 L 99 08/18/19 12:00 08/18/19 18:00 08/18/19 18:00 08/18/19 18:00 08/18/19 18:00 Intake & Output 08/17/19 08/18/19 08/19/19 06:59 06:59 06:59 Intake Total 2101 155 Output Total 45 870 Balance 6 -715 Weight 107.5 kg Weight/Height Weight 107.5 kg Height 5 ft 7 in Laboratory/Radiographs Laboratory Results: 08/18/19 01:27 08/18/19 01:27 08/18/19 08/18/19 08/18/19 01:27 01:27 01:27 WBC 22.4 H RBC 5.26 Hgb 16.7 Hct 47.6 MCV 90 MCH 31.7 MCHC 35.1 RDW 12.9 Plt Count 345 Seg Neutrophils % Not Reportable Carbonic Acid HCO3/H2CO3 Ratio ABG pH ABG pCO2 ABG pO2 ABG HCO3 ABG O2 Saturation ABG Base Excess FiO2 Sodium 139.2 Potassium 3.9 Chloride 103 Carbon Dioxide 22 Anion Gap 14 BUN 18 Creatinine 1.05 Est GFR ( Amer) > 60 Glucose 185 H Lactic Acid 4.4 H Calcium 9.3 Total Bilirubin 0.4 AST 132 H Alkaline Phosphatase 80 Ammonia Total Protein 8.2 Albumin 4.8 Urine Color Urine Appearance Urine pH Ur Specific [place] Urine Protein Urine Glucose (UA) Urine Ketones Urine Blood Urine RBC (Auto) 08/18/19 08/18/19 08/18/19 01:27 01:47 06:15 WBC RBC Hgb Hct MCV MCH MCHC RDW Plt Count Seg Neutrophils % Carbonic Acid 1.47 H HCO3/H2CO3 Ratio 15:1 ABG pH 7.29 L ABG pCO2 48.8 H ABG pO2 158.1 H ABG HCO3 23.2 ABG O2 Saturation 98.8 H ABG Base Excess -3.9 FiO2 100% Sodium Potassium Chloride Carbon Dioxide Anion Gap BUN Creatinine Est GFR ( Amer) Glucose Lactic Acid 3.3 H Calcium Total Bilirubin AST Alkaline Phosphatase Ammonia Total Protein Albumin Urine Color YELLOW Urine Appearance CLOUDY Urine pH 5.0 Ur Specific [place] 1.020 Urine Protein 100 H Urine Glucose (UA) NEGATIVE Urine Ketones NEGATIVE Urine Blood SMALL H Urine RBC (Auto) 1 08/18/19 08/18/19 08/18/19 06:50 09:40 13:51 WBC RBC Hgb Hct MCV MCH MCHC RDW Plt Count Seg Neutrophils % Carbonic Acid 1.31 HCO3/H2CO3 Ratio 19:1 ABG pH 7.38 ABG pCO2 43.4 ABG pO2 84.9 ABG HCO3 25.1 H ABG O2 Saturation 96.2 ABG Base Excess -0.2 FiO2 40% Sodium Potassium Chloride Carbon Dioxide Anion Gap BUN Creatinine Est GFR ( Amer) Glucose Lactic Acid 3.1 H Calcium Total Bilirubin AST Alkaline Phosphatase Ammonia 9.5 Total Protein Albumin Urine Color Urine Appearance Urine pH Ur Specific [place] Urine Protein Urine Glucose (UA) Urine Ketones Urine Blood Urine RBC (Auto) 08/18/19 14:35 WBC RBC Hgb Hct MCV MCH MCHC RDW Plt Count Seg Neutrophils % Carbonic Acid 1.22 HCO3/H2CO3 Ratio 21:1 ABG pH 7.43 ABG pCO2 40.4 ABG pO2 112.9 H ABG HCO3 26.3 H ABG O2 Saturation 98.2 H ABG Base Excess 1.9 FiO2 40% Sodium Potassium Chloride Carbon Dioxide Anion Gap BUN Creatinine Est GFR ( Amer) Glucose Lactic Acid Calcium Total Bilirubin AST Alkaline Phosphatase Ammonia Total Protein Albumin Urine Color Urine Appearance Urine pH Ur Specific [place] Urine Protein Urine Glucose (UA) Urine Ketones Urine Blood Urine RBC (Auto) 08/18/19 01:27 Troponin I 0.047 Impressions: Chest X-Ray 08/18/19 01:31 IMPRESSION: Mild atelectasis or early pneumonia in the right midlung. Head CT 08/18/19 01:31 IMPRESSION: No acute findings. Critical Time -: The care of a critically ill patient is dynamic. This note represents a static moment in the admission process. Orders and treatments may be given simultaneously and urgently, and time is not veterans employment representative of the treatment process. This patient requires Critical Care secondary to life threatening organ or limb dysfunction. Without Critical Care services, the patient is at risk for inc reased mortality and morbidity.
[2019-08-18] MEDS ORDERED: IPRATROPIUM/ALBUTEROL 0.5-2.5 MG/3 ML AMPUL NEB PRN (05:37)
[2019-08-18] MEDS: RINGERS SOLUTION,LACTATED 1,000 ML IV PRN (05:44)
[2019-08-18] MEDS: HEPARIN SOD (PORCINE) 5,000 UNIT/ML 1 ML VIAL SUBCUT SCH ×3 (06:05→21:25)
[2019-08-18 07:09] LABS: ARTERIAL BLOOD BASE EXCESS -0.2 mmol/L; ARTERIAL BLOOD FIO2 40%; ARTERIAL BLOOD H2CO3 1.31 mmol/L (1.05-1.35); ARTERIAL BLOOD HCO3 25.1 mmol/L (20-24); ARTERIAL BLOOD O2 SATURATION 96.2 % (94-98); ARTERIAL BLOOD PCO2 43.4 mmHg (35-45); ARTERIAL BLOOD PH 7.38 (7.35-7.45); ARTERIAL BLOOD PO2 84.9 mmHg (80-100); ARTERIAL BLOOD TOTAL CO2 26.4 mmol/L (23-27)
--- NOTE | 2019-08-18 09:41 | EKG REPORT ---
SEVERITY:- BORDERLINE ECG - SINUS TACHYCARDIA BORDERLINE RIGHT AXIS DEVIATION INFERIOR Q WAVES, PROBABLY NORMAL VARIATION MINIMAL ST DEPRESSION, INFERIOR LEADS : Confirmed by: Francisco J Rooney MD 18-Aug-2019 09:41:15
[2019-08-18] MEDS ORDERED: FENTANYL CITRATE INJ/PF 100 MCG/2 ML AMPUL ONE ×2 (10:19→11:48)
[2019-08-18] MEDS: FAMOTIDINE INJ/PF 20 MG/2 ML SDV IV SCH ×2 (10:24→21:25)
[2019-08-18] MEDS: DEXMEDETOMIDINE IN 0.9 % NACL 400 MCG/100 ML RTUPB IV PRN ×3 (12:21→19:10)
[2019-08-18 14:57] LABS: ARTERIAL BLOOD BASE EXCESS 1.9 mmol/L; ARTERIAL BLOOD FIO2 40%; ARTERIAL BLOOD H2CO3 1.22 mmol/L (1.05-1.35); ARTERIAL BLOOD HCO3 26.3 mmol/L (20-24); ARTERIAL BLOOD O2 SATURATION 98.2 % (94-98); ARTERIAL BLOOD PCO2 40.4 mmHg (35-45); ARTERIAL BLOOD PH 7.43 (7.35-7.45); ARTERIAL BLOOD PO2 112.9 mmHg (80-100); ARTERIAL BLOOD TOTAL CO2 27.6 mmol/L (23-27)
[2019-08-19] MEDS: DEXMEDETOMIDINE IN 0.9 % NACL 400 MCG/100 ML RTUPB IV PRN ×3 (00:31→13:40)
[2019-08-19] MEDS: RINGERS SOLUTION,LACTATED 1,000 ML IV PRN (00:31)
[2019-08-19] MEDS: FENTANYL CITRATE INJ/PF 100 MCG/2 ML AMPUL IV PRN ×2 (01:13→11:04)
[2019-08-19 04:42] LABS: HEMATOCRIT 37.4 % (37.9-51.0); MEAN CORPUSCULAR HEMOGLOBIN 31.4 pg (27.0-33.4); MEAN CORPUSCULAR HGB CONC 34.3 g/dL (32.0-36.0); MEAN CORPUSCULAR VOLUME 92 fl (80-97); PLATELET COUNT 177 10^3/uL (150-450); RED BLOOD COUNT 4.07 10^6/uL (4.35-5.55); RED CELL DISTRIBUTION WIDTH 12.9 % (11.5-14.0); WHITE BLOOD COUNT 11.4 10^3/uL (4.0-10.5)
[2019-08-19 04:43] LABS: HEMOGLOBIN 12.8 g/dL (13.5-17.0)
[2019-08-19 04:58] LABS: ALBUMIN 3.4 g/dL (3.5-5.0); ALKALINE PHOSPHATASE 55 U/L (38-126); ASPARTATE AMINO TRANSFERASE 112 U/L (17-59); BILIRUBIN,DIRECT 0.1 mg/dL (0.0-0.4); BILIRUBIN,TOTAL 1.4 mg/dL (0.2-1.3); BLOOD UREA NITROGEN 19 mg/dL (7-20); CALCIUM 8.7 mg/dL (8.4-10.2); GLUCOSE 100 mg/dL (75-110); PHOSPHORUS 2.7 mg/dL (2.5-4.5); POTASSIUM 4.5 mmol/L (3.6-5.0); TOTAL PROTEIN 6.3 g/dL (6.3-8.2)
[2019-08-19 05:02] LABS: CARBON DIOXIDE 29 mmol/L (22-30); CHLORIDE 106 mmol/L (98-107)
[2019-08-19 05:10] LABS: ANION GAP 3 (5-19)
[2019-08-19] MEDS: HEPARIN SOD (PORCINE) 5,000 UNIT/ML 1 ML VIAL SUBCUT SCH ×3 (05:11→21:57)
[2019-08-19] MEDS: ACETAMINOPHEN 325 MG TABLET PO PRN ×2 (05:12→13:46)
[2019-08-19 06:57] LABS: ARTERIAL BLOOD FIO2 30%; ARTERIAL BLOOD H2CO3 1.28 mmol/L (1.05-1.35); ARTERIAL BLOOD HCO3 26.8 mmol/L (20-24); ARTERIAL BLOOD O2 SATURATION 92.6 % (94-98); ARTERIAL BLOOD PCO2 42.5 mmHg (35-45); ARTERIAL BLOOD PH 7.42 (7.35-7.45); ARTERIAL BLOOD PO2 63.5 mmHg (80-100); ARTERIAL BLOOD TOTAL CO2 28.1 mmol/L (23-27)
--- NOTE | 2019-08-19 08:37 | RADIOLOGY REPORT (SQ) ---
EXAM DESCRIPTION: CHEST SINGLE VIEW IMAGES COMPLETED DATE/TIME: 08/19/2019 6:30 am REASON FOR STUDY: aspiration COMPARISON: 08/18/2019. EXAM PARAMETERS: NUMBER OF VIEWS: One view. TECHNIQUE: Single frontal radiographic view of the chest acquired. RADIATION DOSE: NA LIMITATIONS: None. FINDINGS: LUNGS AND PLEURA: Faint opacity in the mid right lung has resolved. Mild diffuse intersti tial prominence. MEDIASTINUM AND HILAR STRUCTURES: No masses. Contour normal. HEART AND VASCULAR STRUCTURES: Mild cardiac enlargement. BONES: No acute findings. HARDWARE: Stable endotracheal tube and nasogastric tube. OTHER: No other significant finding. IMPRESSION: FAINT DENSITY IN THE MID RIGHT LUNG HAS RESOLVED. OTHERWISE UNCHANGED. TECHNICAL DOCUMENTATION: JOB ID: [id number] 2010 [email or web address]- All Rights Reserved Reading location - IP/workstation name: [email or web address]
[2019-08-19] MEDS: FAMOTIDINE INJ/PF 20 MG/2 ML SDV IV SCH (09:35)
[2019-08-19] MEDS ORDERED: LEVETIRACETAM 1000 MG/NACL-ISO 1,000 MG/100 ML RTUPB IV SCH (14:30)
[2019-08-19] MEDS ORDERED: VANCOMYCIN HCL 0 MG in DEXTROSE 5%-WATER 250 ML IV NR (16:15)
--- NOTE | 2019-08-19 16:33 | PDOC CRITICAL CARE PROG REPORT ---
General Date:: 08/19/19 ICU Day:: 2 Ventilator Day:: 2 Hospital Day:: 2 Resuscitation Status: Full Code Medical Power of Retail Salesman: , Cindy, Events in the past 12 to 24 Hours:: 08.19.2019: Patient has continued to improve and has been no seizures. He was placed on SBT and after multiple evaluations for suitability was able to be weaned and extubated. After suitable time. For arousal discussion was carried out with the patient. He actually denies any narcotic or drug use. When disclosing that we found narcotics in his urine he is unaware of while he would be there and the consensus is this may be from the emergency room interventions. He does endorse and disclose that he has a seizure disorder but has not been taking his medications. His Cindy endorses this as well. In light of this he was reloaded with Keppra and placed on twice daily Keppra. He states that due to insurance reasons he has not been able to take his medications. Review of systems relevant to events:: 08.19.2019: He denies any chest pain or shortness of breath at this time. He is somewhat lethargic but is able to answer questions. He has no headache. No notable seizure activity per nursing Reason for ICU Addmission:: Respiratory failure, opioid overdose. Physical Exam Vital Signs: Temp Pulse Resp BP Pulse Ox 100.0 F 104 H 32 H 105/92 H 93 08/19/19 12:00 08/19/19 14:03 08/19/19 14:03 08/19/19 14:00 08/19/19 14:03 Intake & Output 08/18/19 08/19/19 08/20/19 06:59 06:59 06:59 Intake Total 2101 1383 1151 Output Total 45 1830 380 Balance 2056 -400 771 Weight 107.5 kg 107.1 kg Weight/Height Weight 107.1 kg Height 5 ft 7 in General appearance: PRESENT: no acute distress, obese, well-developed Exam: Multiple evaluations both prior to liberation from mechanical ventilation and after. He is an obese older appearing 24-year-old male no active distress. He is responsive and following commands and can lift his head off the bed. This carried through during liberation from mechanical ventilation and multiple follow-up examinations. Head exam: PRESENT: atraumatic, normocephalic Eye exam: PRESENT: conjunctival injection, conjunctiva pink, EOMI, PERRLA. ABSENT: nystagmus, scleral icterus Mouth exam: PRESENT: moist, neck supple Teeth exam: PRESENT: poor dentation Neck exam: ABSENT: carotid bruit, JVD, lymphadenopathy, meningismus, thyromegaly, tracheal deviation Respiratory exam: PRESENT: clear to auscultation ruben, unlabored. ABSENT: accessory muscle use, rales, rhonchi, tachypnea, wheezes Cardiovascular exam: PRESENT: RRR, +S1, +S2 Pulses: PRESENT: +2 pedal pulses bilateral Vascular exam: PRESENT: normal capillary refill. ABSENT: pallor GI/Abdominal exam: PRESENT: normal bowel sounds, soft. ABSENT: ascites, distended, guarding, mass, organolmegaly, rebound, tenderness Rectal exam: PRESENT: deferred Gentrourinary exam: PRESENT: indwelling catheter Extremities exam: PRESENT: +1 edema. ABSENT: tenderness Musculoskeletal exam: ABSENT: deformity, dislocation Neurological exam: PRESENT: altered, oriented to person, oriented to situation, CN II-XII grossly intact, other. ABSENT: motor sensory deficit, aphasic Psychiatric exam: PRESENT: flat affect Focused psych exam: ABSENT: pressured speech, psychomotor agitation, restlessness Skin exam: PRESENT: dry, intact, warm. ABSENT: cyanosis, rash Tubes/Lines: PRESENT: Endotracheal Tube, Other - Shay type urinary catheter, orogastric tube Laboratory/Radiographs Laboratory Results: 08/19/19 04:24 08/19/19 04:24 08/18/19 08/18/19 08/19/19 19:02 19:02 04:24 WBC 11.4 H RBC 4.07 L Hgb 12.8 L D Hct 37.4 L MCV 92 MCH 31.4 MCHC 34.3 RDW 12.9 Plt Count 177 Carbonic Acid HCO3/H2CO3 Ratio ABG pH ABG pCO2 ABG pO2 ABG HCO3 ABG O2 Saturation ABG Base Excess FiO2 Sodium Potassium Chloride Carbon Dioxide Anion Gap BUN Creatinine Est GFR ( Amer) Glucose Lactic Acid 1.3 Calcium Phosphorus Magnesium Total Bilirubin AST Alkaline Phosphatase Ammonia 11.0 Total Protein Albumin 08/19/19 08/19/19 08/19/19 04:24 04:24 04:24 WBC RBC Hgb Hct MCV MCH MCHC RDW Plt Count Carbonic Acid HCO3/H2CO3 Ratio ABG pH ABG pCO2 ABG pO2 ABG HCO3 ABG O2 Saturation ABG Base Excess FiO2 Sodium 137.9 Potassium 4.5 Chloride 106 Carbon Dioxide 29 Anion Gap 3 L BUN 19 Creatinine 0.97 Est GFR ( Amer) > 60 Glucose 100 Lactic Acid 1.6 Calcium 8.7 Phosphorus 2.7 Magnesium 2.3 Total Bilirubin 1.4 H AST 112 H Alkaline Phosphatase 55 Ammonia < 8.7 L Total Protein 6.3 Albumin 3.4 L 08/19/19 06:25 WBC RBC Hgb Hct MCV MCH MCHC RDW Plt Count Carbonic Acid 1.28 HCO3/H2CO3 Ratio 20:1 ABG pH 7.42 ABG pCO2 42.5 ABG pO2 63.5 L ABG HCO3 26.8 H ABG O2 Saturation 92.6 L ABG Base Excess 2.0 FiO2 30% Sodium Potassium Chloride Carbon Dioxide Anion Gap BUN Creatinine Est GFR ( Amer) Glucose Lactic Acid Calcium Phosphorus Magnesium Total Bilirubin AST Alkaline Phosphatase Ammonia Total Protein Albumin 08/18/19 08/18/19 08/19/19 01:27 19:02 04:24 Creatine Kinase 5811 H CK-MB (CK-2) 2.58 Troponin I 0.047 Impressions: Head CT 08/18/19 01:31 IMPRESSION: No acute findings. Chest X-Ray 08/19/19 06:00 IMPRESSION: FAINT DENSITY IN THE MID RIGHT LUNG HAS RESOLVED. OTHERWISE U NCHANGED. All labs, radiographs, diagnostic studies and EKGs were personally reviewed: Yes In addition, reports of radiographic and diagnostic studies were read: Yes Assessment and Plan - Diagnosis (1) Seizure Is this a current diagnosis for this admission?: Yes (2) Acute respiratory failure with hypoxia Is this a current diagnosis for this admission?: Yes (4) Aspiration pneumonia due to inhalation of vomitus Is this a current diagnosis for this admission?: Yes (5) Convulsive generalized seizure disorder Is this a current diagnosis for this admission?: Yes (6) Obesity (BMI 30-39.9) Is this a current diagnosis for this admission?: Yes (7) Positive blood culture Is this a current diagnosis for this admission?: Yes Plan Summary: 08.19.2019: Respiratory: Patient's respiratory status has improved and has been successfully liberated from mechanical ventilation. His chest x-ray did show some consistent with see with aspiration pneumonitis and/or pneumonia. His tracheal aspirate shows gram-positive cocci in clusters and of interest his blood cultures show gram-positive cocci in chains. We will continue antibiotics for now but will de-escalate to single vancomycin until speciation is completed. Infectious: Patient has gram-positive growing in sputum and blood. I am assuming these are colonization and/or contaminants. We will continue vancomycin in the meantime and follow-up. Cardiac: No active issues monitor supportively post extubation Hematologic: White blood cell count has improved significantly. Continue to monitor Endocrine: No active issues Renal: No active issues Metabolic: Monitor electrolytes and replace as needed Alimentary: Start diet later this evening if mentation and airway status is intact Neurologic: Patient has known seizure disorder but has not been taking medications. I have started Keppra. We do not have neurological consultation here so he will need outpatient follow-up. In that he has a neurological disorder and previous seizure disorder and EEG would not be needed or warranted at this point. I have not placed him on Depakote given his medical noncompliance. Hopefully he will respond and be maintained well on Keppra. Depakote would be a better medication for his combined seizure disorder and personality disorder however level checks and ammonia elevations would need to be evaluated and followed up on. Sedation: Discontinue Precedex and discontinue all narcotic medications Lines/Tubes: Peripheral IVs. Shay to be removed Other: Follow for any seizure disorders and maintained in the ICU post extubation and for neurological observation Critical Time Critical Time (minutes): 60 - Includes multiple examinations for suitability for liberation, discussion with family and follow-up examination Level of Care: ICU Anticipated discharge: Home Within: within 48 hours -: 1. The care of a critical patient is a dynamic process. This note is a plastic products sales representative synopsis but static in nature. The timeframe for treatments given in order is not necessarily the actual time these treatments may have been done. 2. This patient requires critical care secondary to ongoing requirements for therapy not offered or safe outside the critical care environment. Transfer to a lower level of care will result in altered life or limb morbidity and mortality. 3. Multidisciplinary rounds completed. 4. ABCDE bundle addressed.
[2019-08-19] MEDS: VANCOMYCIN HCL 1,250 MG in DEXTROSE 5%-WATER 250 ML IV SCH (18:24)
[2019-08-19] MEDS ORDERED: LEVETIRACETAM 500 MG TABLET PO SCH (22:00)
[2019-08-20] MEDS: VANCOMYCIN HCL 1,250 MG in DEXTROSE 5%-WATER 250 ML IV SCH (02:13)
[2019-08-20 04:41] LABS: ABSOLUTE BASOPHILS # (AUTO) 0.1 10^3/uL (0.0-0.2); ABSOLUTE EOSINOPHILS # (AUTO) 0.3 10^3/uL (0.0-0.6); ABSOLUTE LYMPHOCYTES (AUTO) 1.5 10^3/uL (0.5-4.7); ABSOLUTE MONOCYTES (AUTO) 0.9 10^3/uL (0.1-1.4); ABSOLUTE NEUT (AUTO) 8.6 10^3/uL (1.7-8.2); BASOPHILS % (AUTO) 0.5 % (0-2); EOSINOPHILS % (AUTO) 2.2 % (0-6); HEMOGLOBIN 12.8 g/dL (13.5-17.0); LYMPHOCYTES % (AUTO) 13.5 % (13-45); MEAN CORPUSCULAR HEMOGLOBIN 31.7 pg (27.0-33.4); MEAN CORPUSCULAR HGB CONC 35.7 g/dL (32.0-36.0); MEAN CORPUSCULAR VOLUME 89 fl (80-97); PLATELET COUNT 182 10^3/uL (150-450); RED BLOOD COUNT 4.04 10^6/uL (4.35-5.55); RED CELL DISTRIBUTION WIDTH 12.5 % (11.5-14.0); SEGMENTED NEUTROPHILS % (AUTO) 75.8 % (42-78); TOTAL CELLS COUNTED % (AUTO) 100 %; WHITE BLOOD COUNT 11.4 10^3/uL (4.0-10.5)
[2019-08-20 04:54] LABS: ANION GAP 8 (5-19); BLOOD UREA NITROGEN 11 mg/dL (7-20); CALCIUM 8.8 mg/dL (8.4-10.2); CARBON DIOXIDE 27 mmol/L (22-30); CHLORIDE 100 mmol/L (98-107); GLUCOSE 102 mg/dL (75-110); PHOSPHORUS 3.8 mg/dL (2.5-4.5)
[2019-08-20 05:06] LABS: POTASSIUM 3.3 mmol/L (3.6-5.0)
[2019-08-20] MEDS: HEPARIN SOD (PORCINE) 5,000 UNIT/ML 1 ML VIAL SUBCUT SCH ×2 (05:31→14:50)
[2019-08-20] MEDS ORDERED: BENZOCAINE/MENTHOL SORE THROAT LOZENGE BUCCAL PRN (08:38)
--- NOTE | 2019-08-20 11:41 | PDOC CRITICAL CARE PROG REPORT ---
General Date:: 08/20/19 Hospital Day:: 1 Resuscitation Status: Full Code Medical Power of Business Management Manager: , Cindy, Events in the past 12 to 24 Hours:: Extubaed, no seizures, nearly ready to go home. Review of systems relevant to events:: Neurologic, pulmonary. Reason for ICU Addmission:: Respiratory failure, opioid overdose. Extubated. - Medications: Medications reviewed and adjusted accordingly: Yes Vasopressors:: None Sedation:: None Physical Exam Vital Signs: Temp Pulse Resp BP Pulse Ox 101.6 F H 94 36 H 146/67 H 92 08/20/19 08:00 08/19/19 21:31 08/20/19 10:00 08/20/19 08:31 08/20/19 08:31 Intake & Output 08/19/19 08/20/19 08/21/19 06:59 06:59 06:59 Intake Total 1383 1651 Output Total 1830 1130 150 Balance -447 521 -150 Weight 107.1 kg 105.2 kg Weight/Height Weight 105.2 kg Height 5 ft 7 in General appearance: PRESENT: no acute distress, well-developed, well-nourished Head exam: PRESENT: atraumatic, normocephalic Eye exam: PRESENT: conjunctiva pink, EOMI, PERRLA. ABSENT: scleral icterus Ear exam: PRESENT: normal external ear exam Mouth exam: PRESENT: moist, tongue midline Throat exam: PRESENT: other - Sore throat from intubation. Respiratory exam: PRESENT: clear to auscultation ruben. ABSENT: rales, rhonchi, wheezes Cardiovascular exam: PRESENT: RRR. ABSENT: diastolic murmur, rubs, systolic murmur GI/Abdominal exam: PRESENT: normal bowel sounds, soft. ABSENT: distended, guarding, mass, organolmegaly, rebound, tenderness Rectal exam: PRESENT: deferred Extremities exam: PRESENT: full ROM. ABSENT: calf tenderness, clubbing, pedal edema Musculoskeletal exam: PRESENT: normal inspection Neurological exam: PRESENT: alert, awake, oriented to person, oriented to place, oriented to time, oriented to situation, CN II-XII grossly intact. ABSENT: motor sensory deficit Psychiatric exam: PRESENT: appropriate affect, normal mood. ABSENT: homicidal ideation, suicidal ideation Skin exam: PRESENT: dry, intact, warm. ABSENT: cyanosis, rash Laboratory/Radiographs Laboratory Results: 08/20/19 04:19 08/20/19 04:19 08/20/19 08/20/19 04:19 04:19 WBC 11.4 H RBC 4.04 L Hgb 12.8 L Hct 36.0 L MCV 89 MCH 31.7 MCHC 35.7 RDW 12.5 Plt Count 182 Seg Neutrophils % 75.8 Sodium 135.1 L Potassium 3.3 L D Chloride 100 Carbon Dioxide 27 Anion Gap 8 BUN 11 Creatinine 0.68 Est GFR ( Amer) > 60 Glucose 102 Calcium 8.8 Phosphorus 3.8 Magnesium 1.9 08/18/19 05:50 Shay Catheter Urine Culture - Final NO GROWTH 2 DAYS 08/18/19 01:27 Blood Blood Culture - Final Strep Anginosus Group 08/18/19 01:37 Blood Blood Culture - Final Strep Anginosus Group 08/18/19 08/18/19 08/19/19 01:27 19:02 04:24 Creatine Kinase 5811 H CK-MB (CK-2) 2.58 Troponin I 0.047 Impressions: Head CT 08/18/19 01:31 IMPRESSION: No acute findings. Chest X-Ray 08/19/19 06:00 IMPRESSION: FAINT DENSITY IN THE MID RIGHT LUNG HAS RESOLVED. OTHERWISE UNCHANGED. All labs, radiographs, diagnostic studies and EKGs were personally reviewed: Yes In addition, reports of radiographic and diagnostic studies were read: Yes Assessment and Plan - Diagnosis (1) Aspiration into airway Qualifiers: Encounter type: initial encounter Qualified Code(s): T17.908A - Unspecified foreign body in respiratory tract, part unspecified causing other injury, initial encounter Is this a current diagnosis for this admission?: Yes Plan: This may be the reason for his fever. CXR is fairly clear. (2) Drug overdose Qualifiers: Encounter type: initial encounter Injury intent: accidental or u nintentional Qualified Code(s): T50.901A - Poisoning by unspecified drugs, medicaments and biological substances, accidental (unintentional), initial encounter Is this a current diagnosis for this admission?: Yes (3) Fever Qualifiers: Fever type: unspecified Qualified Code(s): R50.9 - Fever, unspecified Is this a current diagnosis for this admission?: Yes Plan: Resolved (4) Obesity (BMI 30-39.9) Is this a current diagnosis for this admission?: Yes Plan: This may have been a risk factor for aspiration. (5) Respiratory failure requiring intubation Is this a current diagnosis for this admission?: Yes Plan: Resolved (6) Seizure Is this a current diagnosis for this admission?: Yes Plan: On PO keppra. Narcotics and narcan are not in general associated with seizures. Plan Summary: When his fever is resolved he priscila be ready for discharge. Critical Time Critical Time (minutes): 25 Level of Care: MEDICAL Anticipated discharge: Home Within: within 48 hours -: 1. The care of a critical patient is a dynamic process. This note is a rep resentative synopsis but static in nature. The timeframe for treatments given in order is not necessarily the actual time these treatments may have been done. 2. This patient requires critical care secondary to ongoing requirements for therapy not offered or safe outside the critical care environment. Transfer to a lower level of care will result in altered life or limb morbidity and mortality. 3. Multidisciplinary rounds completed. 4. ABCDE bundle addressed.
[2019-08-20 17:55] VITALS: BP 117/60
--- NOTE | 2019-08-20 17:57 | PDOC DISCHARGE SUMMARY ---
Impression - Admit/DC Date/PCP Admission Date/Primary Care Provider: 08/18/19 03:34 Discharge Date: 08/20/19 - Discharge Diagnosis (1) Aspiration into airway Is this a current diagnosis for this admission?: Yes (2) Drug overdose Is this a current diagnosis for this admission?: Yes (3) Fever Is this a current diagnosis for this admission?: Yes (4) Obesity (BMI 30-39.9) Is this a current diagnosis for this admission?: Yes (5) Respiratory failure requiring intubation Is this a current diagnosis for this admission?: Yes (6) Seizure Is this a current diagnosis for this admission?: Yes - Assessment Summary: This patient is a 24 yo man who was briefly intubated for drug intoxication and a seizure but was quickly extubated within hours. He has had no seizures and has a very low grade tempertaure likely from a mild aspiration and wishes to go home. - Additional Information Resuscitation Status: Full Code Discharge Diet: Regular Discharge Activity: Activity As Tolerated Home Medications: RX: No Home Medications 08/18/19 History of Present Illiness History of Present Illness: NENA BLANTON is a 24 year old male brought to ED with narcotics, received narcan and had a seizure. No recurrance. No meds. Walking in room, feeling fine breathing well. Wants to go home. Hospital Course Hospital Course: He recovered very quickly and is ready for discharge. Physical Exam Vital Signs: Temp Pulse Resp BP Pulse Ox 101.6 F H 99 36 H 146/67 H 92 08/20/19 08:00 08/20/19 10:00 08/20/19 10:00 08/20/19 08:31 08/20/19 08:31 Intake & Output 08/19/19 08/20/19 08/21/19 06:59 06:59 06:59 Intake Total 1383 1651 Output Total 1830 1130 300 Balance -447 521 -300 Weight 107.1 kg 105.2 kg General appearance: PRESENT: no acute distress, well-developed, well-nourished Head exam: PRESENT: atraumatic, normocephalic Eye exam: PRESENT: conjunctiva pink, EOMI, PERRLA. ABSENT: scleral icterus Ear exam: PRESENT: normal external ear exam Mouth exam: PRESENT: moist, tongue midline Respiratory exam: PRESENT: clear to auscultation ruben. ABSENT: rales, rhonchi, wheezes Cardiovascular exam: PRESENT: bradycardia GI/Abdominal exam: PRESENT: normal bowel sounds, soft. ABSENT: distended, guarding, mass, organolmegaly, rebound, tenderness Rectal exam: PRESENT: deferred Extremities exam: PRESENT: full ROM. ABSENT: calf tenderness, clubbing, pedal edema Neurological exam: PRESENT: alert, awake, oriented to person, oriented to place, oriented to time, oriented to situation, CN II-XII grossly intact. ABSENT: motor sensory deficit Psychiatric exam: PRESENT: appropriate affect, normal mood. ABSENT: homicidal ideation, suicidal ideation Skin exam: PRESENT: dry, intact, warm. ABSENT: cyanosis, rash Results Laboratory Results: WBC 11.4 10^3/uL (4.0-10.5) H 08/20/19 04:19 RBC 4.04 10^6/uL (4.35-5.55) L 08/20/19 04:19 Hgb 12.8 g/dL (13.5-17.0) L 08/20/19 04:19 Hct 36.0 % (37.9-51.0) L 08/20/19 04:19 MCV 89 fl (80-97) 08/20/19 04:19 MCH 31.7 pg (27.0-33.4) 08/20/19 04:19 MCHC 35.7 g/dL (32.0-36.0) 08/20/19 04:19 RDW 12.5 % (11.5-14.0) 08/20/19 04:19 Plt Count 182 10^3/uL (150-450) 08/20/19 04:19 Lymph % (Auto) 13.5 % (13-45) 08/20/19 04:19 [place] % (Auto) 8.0 % (3-13) 08/20/19 04:19 Eos % (Auto) 2.2 % (0-6) 08/20/19 04:19 Baso % (Auto) 0.5 % (0-2) 08/20/19 04:19 Absolute Neuts (auto) 8.6 10^3/uL (1.7-8.2) H 08/20/19 04:19 Absolute Lymphs (auto) 1.5 10^3/uL (0.5-4.7) 08/20/19 04:19 Absolute Monos (auto) 0.9 10^3/uL (0.1-1.4) 08/20/19 04:19 Absolute Eos (auto) 0.3 10^3/uL (0.0-0.6) 08/20/19 04:19 Absolute Basos (auto) 0.1 10^3/uL (0.0-0.2) 08/20/19 04:19 Total Counted 100 08/18/19 01:27 Seg Neutrophils % 75.8 % (42-78) 08/20/19 04:19 Seg Neuts % (Manual) 70 % (42-78) 08/18/19 01:27 Lymphocytes % (Manual) 20 % (13-45) 08/18/19 01:27 Atypical Lymphs % 2 % (0) 08/18/19 01:27 Monocytes % (Manual) 6 % (3-13) 08/18/19 01:27 Eosinophils % (Manual) 1 % (0-6) 08/18/19 01:27 Basophils % (Manual) 1 % (0-2) 08/18/19 01:27 Abs Neuts (Manual) 15.7 10^3/uL (1.7-8.2) H 08/18/19 01:27 Abs Lymphs (Manual) 4.9 10^3/uL (0.5-4.7) H 08/18/19 01:27 Abs Monocytes (Manual) 1.3 10^3/uL (0.1-1.4) 08/18/19 01:27 Absolute Eos (Manual) 0.2 10^3/uL (0.0-0.6) 08/18/19 01:27 Abs Basophils (Manual) 0.2 10^3/uL (0.0-0.2) 08/18/19 01:27 Platelet Comment ADEQUATE 08/18/19 01:27 PT 13.7 SEC (11.4-15.4) 08/18/19 01:27 INR 1.05 08/18/19 01:27 Carbonic Acid 1.28 mmol/L (1.05-1.35) 08/19/19 06:25 HCO3/H2CO3 Ratio 20:1 08/19/19 06:25 ABG pH 7.42 (7.35-7.45) 08/19/19 06:25 ABG pCO2 42.5 mmHg (35-45) 08/19/19 06:25 ABG pO2 63.5 mmHg (80-100) L 08/19/19 06:25 ABG HCO3 26.8 mmol/L (20-24) H 08/19/19 06:25 ABG Total CO2 28.1 mmol/L (23-27) H 08/19/19 06:25 ABG O2 Saturation 92.6 % (94-98) L 08/19/19 06:25 ABG Base Excess 2.0 mmol/L 08/19/19 06:25 FiO2 30% 08/19/19 06:25 Sodium 135.1 mmol/L (137-145) L 08/20/19 04:19 Potassium 3.3 mmol/L (3.6-5.0) L D 08/20/19 04:19 Chloride 100 mmol/L (98-107) 08/20/19 04:19 Carbon Dioxide 27 mmol/L (22-30) 08/20/19 04:19 Anion Gap 8 (5-19) 08/20/19 04:19 BUN 11 mg/dL (7-20) 08/20/19 04:19 Creatinine 0.68 mg/dL (0.52-1.25) 08/20/19 04:19 Est GFR ( Amer) > 60 (>60) 08/20/19 04:19 Est GFR (MDRD) Non-Af > 60 (>60) 08/20/19 04:19 Glucose 102 mg/dL (75-110) 08/20/19 04:19 POC Glucose 164 mg/dL (70-110) H 08/18/19 01:30 Lactic Acid 1.6 mmol/L (0.7-2.1) 08/19/19 04:24 Calcium 8.8 mg/dL (8.4-10.2) 08/20/19 04:19 Phosphorus 3.8 mg/dL (2.5-4.5) 08/20/19 04:19 Magnesium 1.9 mg/dL (1.6-2.3) 08/20/19 04:19 Total Bilirubin 1.4 mg/dL (0.2-1.3) H 08/19/19 04:24 Direct Bilirubin 0.1 mg/dL (0.0-0.4) 08/19/19 04:24 Neonat Total Bilirubin Not Reportable 08/19/19 04:24 Neonat Direct Bilirubin Not Reportable 08/19/19 04:24 Neonat Indirect Bili Not Reportable 08/19/19 04:24 AST 112 U/L (17-59) H 08/19/19 04:24 ALT 172 U/L (<50) H 08/19/19 04:24 Alkaline Phosphatase 55 U/L (38-126) 08/19/19 04:24 Ammonia < 8.7 umol/L (9-33) L 08/19/19 04:24 Creatine Kinase 5811 U/L (55-170) H 08/18/19 19:02 CK-MB (CK-2) 2.58 ng/mL (<4.55) 08/19/19 04:24 Troponin I 0.047 ng/mL 08/18/19 01:27 Total Protein 6.3 g/dL (6.3-8.2) 08/19/19 04:24 Albumin 3.4 g/dL (3.5-5.0) L 08/19/19 04:24 Urine Color YELLOW 08/18/19 01:27 Urine Appearance CLOUDY 08/18/19 01:27 Urine pH 5.0 (5.0-9.0) 08/18/19 01:27 Ur Specific [place] 1.020 08/18/19 01:27 Urine Protein 100 mg/dL (NEGATIVE) H 08/18/19 01:27 Urine Glucose (UA) NEGATIVE mg/dL (NEGATIVE) 08/18/19 01:27 Urine Ketones NEGATIVE mg/dL (NEGATIVE) 08/18/19 01:27 Urine Blood SMALL (NEGATIVE) H 08/18/19 01:27 Urine Nitrite (Reflex) NEGATIVE (NEGATIVE) 08/18/19 01:27 Urine Bilirubin NEGATIVE (NEGATIVE) 08/18/19 01:27 Urine Urobilinogen NEGATIVE mg/dL (<2.0) 08/18/19 01:27 Leukocyte Esterase Rfl NEGATIVE (NEGATIVE) 08/18/19 01:27 Urine RBC (Auto) 1 /HPF 08/18/19 01:27 U Hyaline Cast (Auto) 199 /LPF 08/18/19 01:27 Urine WBC (Reflex) 2 /HPF 08/18/19 01:27 Squamous Epi Cells Auto 2 /HPF 08/18/19 01:27 Urine Mucus (Auto) FEW /LPF 08/18/19 01:27 Urine Ascorbic Acid 20 (NEGATIVE) H 08/18/19 01:27 Salicylates < 1.0 mg/dL (2.0-20.0) L 08/18/19 01:27 Urine Opiates Screen UNCONFIRMED POSITIVE 08/18/19 01:27 Urine Methadone Screen NEGATIVE 08/18/19 01:27 Acetaminophen < 10 ug/mL (10-30) L 08/18/19 01:27 Ur Barbiturates Screen NEGATIVE 08/18/19 01:27 Ur Phencyclidine Scrn NEGATIVE 08/18/19 01:27 Ur Amphetamines Screen NEGATIVE 08/18/19 01:27 U Benzodiazepines Scrn UNCONFIRMED POSITIVE 08/18/19 01:27 Urine Cocaine Screen NEGATIVE 08/18/19 01:27 U Marijuana (THC) Screen NEGATIVE 08/18/19 01:27 Serum Alcohol < 10 mg/dL (NONE DETECTED) 08/18/19 01:27 08/18/19 08/19/19 01:27 04:24 CK-MB (CK-2) 2.58 Troponin I 0.047 EKG Comments: NSR Impressions: Chest X-Ray 08/18/19 01:31 IMPRESSION: Mild atelectasis or early pneumonia in the right midlung. Head CT 08/18/19 01:31 IMPRESSION: No acute findings. Chest X-Ray 08/19/19 06:00 IMPRESSION: FAINT DENSITY IN THE MID RIGHT LUNG HAS RESOLVED. OTHERWISE UNCHA NGED. Plan Health Concerns: Low grade fever 100.4 Plan of Treatment: Home with levoquin Goals: Back to normal life Critical Time: 20 Level of Care: MEDICAL Stroke Is this a Stroke Patient?: No Acute Heart Failure - Is this a Heart Failure Patient?: No
== END 2019-08-20 19:00 | disposition home or self-care (01) | DRG 917 ==
LOC: ER 01:22 → EH 03:34 → ICU 05:15
PROVIDERS: ADMIT Internal Medicine Critical Care Medicine; ATTEND Internal Medicine Critical Care Medicine
PROC: 5A1945Z Respiratory Ventilation, 24-96 Consecutive Hours (ICD-10-PCS; principal; 2019-08-18)
DX: T50.901A Poisoning by unspecified drugs, medicaments and biological substances, accidental (unintentional), initial encounter (principal); R40.20 Unspecified coma; J96.01 Acute respiratory failure with hypoxia; J69.0 Pneumonitis due to inhalation of food and vomit; G40.909 Epilepsy, unspecified, not intractable, without status epilepticus; F31.9 Bipolar disorder, unspecified; F43.10 Post-traumatic stress disorder, unspecified; F90.9 Attention-deficit hyperactivity disorder, unspecified type; F42.9 Obsessive-compulsive disorder, unspecified; Y92.012 Bathroom of single-family (private) house as the place of occurrence of the external cause
CPT/HCPCS: 36415; 36600; 70450; 71045; 80048; 80053; 80076; 80307; 81001; 82140; 82550; 82553; 82803; 82962; 83605; 83735; 84100; 84484; 85025; 85027; 85610; 87040; 87070; 87077; 87086; 87186; 87205; 93005; 93010; 94002; 94003; 96365; 96367; 96375; 99221; 99239; 99291; J1644; J1953; J2250; J2543; J3010; J3370; J3490; J7030; J7060; J7120; S0028

== ENCOUNTER 2019-08-21 22:17 | Emergency (ER) | payer MEDICAID ==
[2019-08-22] MEDS ORDERED: ONDANSETRON 4 MG TAB.RAPDIS PO ONE (00:28)
[2019-08-22] MEDS ORDERED: KETOROLAC TROMETHAMINE 60 MG/2 ML SDV IM ONE (00:30)
--- NOTE | 2019-08-22 00:32 | ER Document Report ---
ED General - General Chief Complaint: Sore Throat Stated Complaint: SORE THROAT,CONGESTION,DIARRHEA,MUSCLE PAIN Time Seen by Provider: 08/21/19 22:59 Notes: 24-year-old male with past medical history of multiple mental health diagnoses presents with sore throat and continued cough after inpatient hospital stay for narcotic overdose and seizure in which he was intubated and shortly extubated. He was discharged on August 19. Patient reports today that he has sore throat and pain with swallowing. He was prescribed the Levaquin at discharge but he did not chicken picker the medication. States he had no idea what the medication was for. Continues to have a productive cough. Low-grade fever. Reports some nausea. Notes that when he had a seizure a few days ago, he landed directly on his left knee and his knee continues to hurt him. States that he does not like to take medication is currently not taking any meds. Reports that his tongue is sore after his most recent seizure due to biting on his tongue. TRAVEL OUTSIDE OF THE [place] IN LAST 30 DAYS: No - Related Data Allergies/Adverse Reactions: methylphenidate [From Ritalin] Allergy (Verified 05/18/18 09:11) methylphenidate HCl [From Concerta] Allergy (Verified 05/18/18 09:11) risperidone [From Risperdal] Allergy (Verified 05/18/18 09:11) Past Medical History - Social History Smoking Status: Current Every Day Smoker Family History: Arthritis, CAD, DM, Hyperlipidemia, Hypertension. denies: COPD, CVA, Malignancy, Thyroid Disfunction Patient has homicidal ideation: No - Past Medical History Cardiac Medical History: Reports: Hx Hypercholesterolemia Pulmonary Medical History: Reports: Hx Asthma Neurological Medical History: Reports: Hx Seizures Renal/ Medical History: Denies: Hx Peritoneal Dialysis Musculoskeletal Medical History: Reports Hx Musculoskeletal Deformity, Reports Hx Musculoskeletal Trauma Psychiatric Medical History: Reports: Hx Anxiety, Hx Attention Deficit Hyperactivity Disorder, Hx Bipolar Disorder, Hx Depression, Hx Obsessive Compulsive Disorder, Hx Post Traumatic Stress Disorder Traumatic Medical History: Reports: Hx Fractures - Feet, left leg, both hands multiple Past Surgical History: Reports: Hx Orthopedic Surgery - Immunizations Immunizations up to date: Yes Hx Diphtheria, Pertussis, Tetanus Vaccination: Yes Review of Systems - Review of Systems Constitutional: See HPI EENT: See HPI Cardiovascular: See HPI Respiratory: See HPI Gastrointestinal: See HPI Genitourinary: See HPI Male Genitourinary: No symptoms reported Skin: No symptoms reported Physical Exam - Vital signs Vitals: Resp Pulse Ox 18 98 08/21/19 22:43 08/21/19 22:43 Interpretation: Hypertensive. No: Bradycardic, Hypoxic - Notes Notes: Adult General: GENERAL: Alert, interacts well. No acute distress HEAD: Normocephalic, atraumatic EYES: Pupils equal, round and reactive to light. Extraocular movements intact. ENT: Oral mucosa moist, tongue midline. Bite cruz on bilateral tongue. Bite amaya also on inside of right cheek. Oropharynx unremarkable. Airway patent. Nares patent, sinuses nontender, TMs unable to be visualized due to cerumen impaction bilaterally. NECK: Neck is mildly tender to palpation. Full range of motion. Supple. Trachea midline. No lymphadenopathy. No nuchal rigidity. LUNGS: Clear to auscultation bilaterally, No wheezes, no rales or rhonchi. No respiratory distress. Nontender chest wall. HEART: Regular rate and rhythm. No murmurs, rubs or gallops. ABDOMEN: Soft, tender, RUQ. Nondistended. (+) [place] sign. Bowel sounds present in all 4 quadrants. GENITOURINARY: Deferred EXTREMITIES: Moves all 4 extremities spontaneously. Pain with right knee flexion. Knee is tender to palpation along anterior knee, no associated swelling. Able to bend knee to approximately 45 degrees. Normal radial and dorsal pedis pulses bilaterally. No cyanosis. BACK: Moves all extremities. NEUROLOGICAL: Alert and oriented x3. Normal speech. Strength 5/ 5 in all extremities. PSYCH: Normal affect, normal mood. SKIN: Warm, dry, normal turgor. No rashes or lesions noted. Course - Re-evaluation Re-evalutation: 08/22/19 01:47 Patient was reevaluated. States that the Toradol really helped his body aches. Does state that he continues to have some pain in his throat. No elevated white count. Is able to handle secretions fine. No drooling, no muffled sounds. Patient now reports that he has right upper quadrant pain and pain with urination. States that these are new. States that he is now able to swallow pills if he can be prescribed Toradol. Discussed with patient his chest x-ray results Which are unremarkable. Also discussed with patient and his left knee is not fractured. Still feel the patient should be take his Levaquin due to the fact that he was recently discharged and continues to have a low-grade fever and a cough with concern for developing pneumonia. Recommend he get his prescription filled. We will give him a dose today in the ER. 08/22/19 04:42 Discussed with patient results of his ultrasound. Shows fatty liver but no signs of cholelithiasis or cholecystitis. Liver enzymes are slightly elevated as well as lipase. Recommend patient follow-up with his primary care provider to monitor these values. Patient reports that after having the viscous lidocaine his pain is much improved. I am pending the results of his urinalysis for final dispo. 08/22/19 04:45 Urinalysis shows positive yeast. Will treat for yeast cystitis. Patient is also being tested for COVID. Recommend patient follow-up with the primary care provider for all complaints reported tonight. Suspect patient throat pain is due to recently being extubated. Patient will need to chicken picker antibiotics to prevent the development of pneumonia. He will need to follow-up with his primary care provider for elevated liver and lipase labs, right upper quadrant pain, dysuria and sore throat. You may follow-up with emergency department if you have worsening symptoms or development of new symptoms. Patient acknowledges and verbalizes understanding of instructions and plan. All questions answered. - Vital Signs Vital signs: Temp Pulse Resp BP Pulse Ox 98.9 F 18 139/78 H 96 08/22/19 05:25 08/22/19 05:01 08/22/19 05:01 08/22/19 05:01 - Laboratory Result Diagrams: 08/22/19 00:45 08/22/19 00:45 Laboratory results interpreted by me: 08/22/19 08/22/19 08/22/19 00:45 00:45 03:20 AST 105 H ALT 149 H Lipase 332.9 H Urine Protein 30 H Urine Urobilinogen 2.0 H Urine Ascorbic Acid 40 H Discharge - Discharge Clinical Impression: Throat pain, Elevated liver enzymes, Elevated lipase, Right upper quadrant pain, Yeast cystitis Condition: Stable Disposition: HOME, SELF-CARE Instructions: Abdominal Pain ([facility]), Sore Throat ([facility]) Additional Instructions: Please follow-up with your primary care provider for your right upper quadrant pain, elevated liver enzymes and lipase. Please follow up with your pcm for your pain with urination. You may return to the emergency department if you have worsening symptoms or the development of new symptoms. At the present investigation for COVID-19, the [place] Department of Health and Human Services (division on public health) advises you to adhere to the following guidance until your test results are reported to you. If your test result is positive, you will receive additional formation from your provider in your local health department at that time. Remain at home until you are cleared by the health provider or public health authorities. Keep a log of visitors to your home, notify any visitors to your home of your isolation status. If you plan to move to a new address of the country, notify the local health department in your County. Call your doctor or seek care if you have emergent medical need. Before seeking medical care, call him to get instructions from the provider before arriving at the medical office, clinic, or hospital. Notified them that you are being tested for the virus (COVID-19) so that arrangements can be made, as necessary, to prevent transmission to others in the healthcare setting. Next, notified the local health department in your county. If the medical emergency arises any need to call 911, and from the first responders that you are being tested for the virus that causes COVID-19. Next, notify the local health department and your county. Prescriptions: Fluconazole [Diflucan] 200 mg PO DAILY #14 tablet
[2019-08-22 01:00] LABS: ABSOLUTE BASOPHILS # (AUTO) 0.1 10^3/uL (0.0-0.2); ABSOLUTE EOSINOPHILS # (AUTO) 0.6 10^3/uL (0.0-0.6); ABSOLUTE LYMPHOCYTES (AUTO) 1.9 10^3/uL (0.5-4.7); ABSOLUTE MONOCYTES (AUTO) 1.1 10^3/uL (0.1-1.4); ABSOLUTE NEUT (AUTO) 6.6 10^3/uL (1.7-8.2); BASOPHILS % (AUTO) 0.5 % (0-2); EOSINOPHILS % (AUTO) 5.5 % (0-6); HEMATOCRIT 39.3 % (37.9-51.0); HEMOGLOBIN 13.9 g/dL (13.5-17.0); LYMPHOCYTES % (AUTO) 18.7 % (13-45); MEAN CORPUSCULAR HEMOGLOBIN 31.7 pg (27.0-33.4); MEAN CORPUSCULAR HGB CONC 35.5 g/dL (32.0-36.0); MEAN CORPUSCULAR VOLUME 89 fl (80-97); MONOCYTES % (AUTO) 10.5 % (3-13); PLATELET COUNT 240 10^3/uL (150-450); RED CELL DISTRIBUTION WIDTH 12.8 % (11.5-14.0); SEGMENTED NEUTROPHILS % (AUTO) 64.8 % (42-78); TOTAL CELLS COUNTED % (AUTO) 100 %; WHITE BLOOD COUNT 10.1 10^3/uL (4.0-10.5)
[2019-08-22 01:18] LABS: ALBUMIN 4.1 g/dL (3.5-5.0); ALKALINE PHOSPHATASE 61 U/L (38-126); ANION GAP 6 (5-19); ASPARTATE AMINO TRANSFERASE 105 U/L (17-59); BILIRUBIN,TOTAL 0.9 mg/dL (0.2-1.3); BLOOD UREA NITROGEN 14 mg/dL (7-20); CALCIUM 9.5 mg/dL (8.4-10.2); CARBON DIOXIDE 28 mmol/L (22-30); CHLORIDE 104 mmol/L (98-107); GLUCOSE 95 mg/dL (75-110); POTASSIUM 3.7 mmol/L (3.6-5.0); TOTAL PROTEIN 7.4 g/dL (6.3-8.2)
--- NOTE | 2019-08-22 01:25 | RADIOLOGY REPORT (SQ) ---
Left knee three view on 08/22/2019 at 1:04 AM Clinical indications: Seizure with fall, inferior patella pain COMPARISON: None FINDINGS: No joint effusion is noted. There are no fractures. Visualized joints are well aligned. No bony abnormality is noted. IMPRESSION: No acute abnormality.
--- NOTE | 2019-08-22 01:26 | RADIOLOGY REPORT (SQ) ---
EXAM: XR Chest, 1 View EXAM DATE/TIME: 08/22/2019 1:03 AM CLINICAL HISTORY: The patient is 24 years old and is Male; cough TECHNIQUE: Frontal view of the chest. COMPARISON: Chest radiograph from 08/19/2019 FINDINGS: LUNGS: Unremarkable. No consolidation. PLEURAL SPACE: Unremarkable. No pneumothorax. HEART: No significant enlargement of the cardiac silhouette. MEDIASTINUM: Unremarkable. BONES/JOINTS: No acute osseous findings. TUBES, LINES AND DEVICES: Interval removal of the endotracheal tube and enteric tube. IMPRESSION: No acute findings visualized in the chest.
[2019-08-22] MEDS ORDERED: LIDOCAINE 2% VISCOUS SOLN 15 ML UDCUP PO ONE (01:35)
--- NOTE | 2019-08-22 03:00 | RADIOLOGY REPORT (SQ) ---
EXAM DESCRIPTION: US ABDOMEN LIMITED COMPLETED DATE/TME: 08/22/2019 01:46 CLINICAL HISTORY: 24 years, Male, RUQ pain Findings: Liver measures 11.2 cm. Moderately echogenic liver consistent with fatty infiltration. No focal hepatic lesions. Aorta is within normal limits in size. Pancreas is within normal limits. Portal vein is patent with hepatopedal flow. Gallbladder is unremarkable with no evidence for calculus, wall thickening or pericholecystic fluid. No biliary dilatation with the CBD measuring 4 mm. The right kidney measures 12.7 cm. No right hydronephrosis. IMPRESSION: Fatty liver. No evidence for cholelithiasis or cholecystitis.
[2019-08-22] MEDS ORDERED: LEVOFLOXACIN 500 MG TABLET PO ONE (04:07)
[2019-08-22 04:56] LABS: APPEARANCE,URINE TURBID; BILIRUBIN,URINE NEGATIVE (NEGATIVE); COLOR,URINE YELLOW; GLUCOSE, URINE NEGATIVE (NEGATIVE); KETONES,URINE NEGATIVE (NEGATIVE); LEUKOCYTE ESTERASE,URINE NEGATIVE (NEGATIVE); NITRITE,URINE NEGATIVE (NEGATIVE); PROTEIN,URINE 30 mg/dL (NEGATIVE); URINE SPECIFIC GRAVITY 1.033
[2019-08-22 05:35] VITALS: BP 139/78
== END 2019-08-22 05:36 | disposition home or self-care (01) ==
LOC: ER 22:17
DX: J02.9 Acute pharyngitis, unspecified (principal); B37.41 Candidal cystitis and urethritis; R05 Cough; R79.89 Other specified abnormal findings of blood chemistry; R74.8 Abnormal levels of other serum enzymes; S01.552A Open bite of oral cavity, initial encounter; X58.XXXA Exposure to other specified factors, initial encounter; R11.0 Nausea; R50.9 Fever, unspecified; M25.562 Pain in left knee; R10.11 Right upper quadrant pain; R10.811 Right upper quadrant abdominal tenderness; R30.0 Dysuria; H61.23 Impacted cerumen, bilateral; K76.0 Fatty (change of) liver, not elsewhere classified; F17.200 Nicotine dependence, unspecified, uncomplicated; J45.909 Unspecified asthma, uncomplicated; Z20.828 Contact with and (suspected) exposure to other viral communicable diseases; Z88.8 Allergy status to other drugs, medicaments and biological substances
CPT/HCPCS: 99284; 96372; 36415; 87040; 83690; 85025; 87635; 80053; 81001; 71045; 73562; 76705; J1885; S0119; J3490 ×2; C9803

== ENCOUNTER 2019-12-28 18:53 | Emergency (ER) | payer MEDICAID ==
[2019-12-28 18:57] VITALS: BP 133/68
--- NOTE | 2019-12-28 19:12 | ER Document Report ---
HPI - HPI Time Seen by Provider: 12/28/19 19:03 Pain Level: 2 Notes: 24-year-old male presents to the emergency room today with complaints of a infection starting to his left shoulder that he has been picking out for couple of weeks. Denies any fevers or chills. Patient is unsure of any history of MRSA. Denies any fevers or chills. No [id number] medications have been tried. Worse this time, nothing makes better. Patient states he has a history of picking at his skin incessantly. Denies fevers, chills, chest pain,palpitations, shortness of breath, dyspnea, nausea, vomiting, diarrhea, abdominal pain, hematuria,blurred vision, double vision, loss of vision, speech changes, LH, dizziness, syncope, headaches, wheezing, ST, URI, neck pain, weakness, bowel or bladder dysfunction, saddle anesthesia, numbness or tingling in bilateral upper or lower extremities equally, muscle paralysis, weakness in bilateral upper or lower extremities equally or rash. MEDICATIONS: I agree with the patient medications as charted by the RN. ALLERGIES: I agree with the allergies as charted by the RN. PAST MEDICAL HISTORY/PAST SURGICAL HISTORY: Reviewed and agree as charted by RN. SOCIAL HISTORY: Reviewed and agree as charted by RN. FAMILY HISTORY: No significant familial comorbid conditions directly related to patient complaint EXAM: Reviewed vital signs as charted by RN. REVIEW OF SYSTEMS:reviewed vital signs by RN CONSTITUTIONAL : Denies fever, chills, or sweats. Denies recent illness. EENT: Denies eye, ear, throat, or mouth pain or symptoms. Denies nasal or sinus congestion or discharge. Denies throat, tongue, or mouth swelling or difficulty swallowing. CARDIOVASCULAR: Denies chest pain. Denies palpitations or racing or irregular heart beat. Denies ankle edema. RESPIRATORY: Denies cough, cold, or chest congestion. Denies shortness of breath, difficulty breathing, or wheezing. GASTROINTESTINAL: Denies abdominal pain or distention. Denies nausea, vomiting, or diarrhea. Denies blood in vomitus, stools, or per rectum. Denies black, tarry stools. Denies constipation. GENITOURINARY: Denies difficulty urinating, painful urination, burning, frequency, blood in urine, or discharge. MUSCULOSKELETAL: Denies back or neck pain or stiffness. Denies joint pain or swelling. SKIN: Reports a rash. denies lesions or sores. HEMATOLOGIC : Denies easy bruising or bleeding. LYMPHATIC: Denies swollen, enlarged glands. NEUROLOGICAL: Denies confusion or altered mental status. Denies passing out or loss of consciousness. Denies dizziness or lightheadedness. Denies headache. Denies weakness or paralysis or loss of use of either side. Denies problems with gait or speech. Denies sensory loss, numbness, or tingling. Denies seizures. PSYCHIATRIC: Denies anxiety or stress. Denies depression, suicidal ideation, or homicidal ideation. ALL OTHER SYSTEMS REVIEWED AND NEGATIVE. Dictation was performed using [employer] voice recognition software PHYSICAL EXAMINATION: GENERAL: Well-appearing, well-nourished and in no acute distress. HEAD: Atraumatic, normocephalic. EYES: Pupils equal round and reactive to light, extraocular movements intact, sclera anicteric, conjunctiva are normal. ENT: Nares patent, oropharynx clear without exudates. Moist mucous membranes. NECK: Normal range of motion, supple without lymphadenopathy LUNGS: Breath sounds clear to auscultation bilaterally and equal. No wheezes rales or rhonchi. HEART: Regular rate and rhythm without murmurs ABDOMEN: Soft, nontender, nondistended abdomen. No guarding, no rebound. No masses appreciated. Musculoskeletal: Normal range of motion, no pitting or edema. No cyanosis. NEUROLOGICAL: Cranial nerves grossly intact. Normal speech, normal gait. Normal sensory, motor exams PSYCH: Normal mood, normal affect. SKIN: Warm, Dry, normal turgor, no rashes or lesions noted. Left anterior shoulder with approximately 1 cm x 1 cm area of scar tissue with surrounding erythema induration, no fluctuance noted. No surrounding erythema. - REPRODUCTIVE Reproductive: DENIES: : Past Medical History - General Information source: Patient - Social History Smoking Status: Current Every Day Smoker Family History: Arthritis, CAD, DM, Hyperlipidemia, Hypertension. denies: COPD, CVA, Malignancy, Thyroid Disfunction Patient has homicidal ideation: No - Past Medical History Cardiac Medical History: Reports: Hx Hypercholesterolemia Pulmonary Medical History: Reports: Hx Asthma Neurological Medical History: Reports: Hx Seizures Renal/ Medical History: Denies: Hx Peritoneal Dialysis Musculoskeletal Medical History: Reports Hx Musculoskeletal Deformity, Reports Hx Musculoskeletal Trauma Psychiatric Medical History: Reports: Hx Anxiety, Hx Attention Deficit Hyperactivity Disorder, Hx Bipolar Disorder, Hx Depression, Hx Obsessive Compulsive Disorder, Hx Post Traumatic Stress Disorder Traumatic Medical History: Reports: Hx Fractures - Feet, left leg, both hands multiple Past Surgical History: Reports: Hx Orthopedic Surgery - Immunizations Immunizations up to date: Yes Hx Diphtheria, Pertussis, Tetanus Vaccination: Yes Vertical Provider Document - CONSTITUTIONAL Agree With Documented VS: Yes Exam Limitations: No Limitations General Appearance: WD/WN - INFECTION CONTROL TRAVEL OUTSIDE OF THE [place] IN LAST 30 DAYS: No Course - Re-evaluation Re-evalutation: 12/28/19 19:11 Afebrile vital stable no distress. Nurses notes reviewed. Discussed with patient that he split heat 20 minutes on 20 minutes off several times a day, to take antibiotics with food as directed. To alternating Tylenol and ibuprofen for pain control. Monitor for any worsening symptoms such as fever, redness, swelling, pain. Follow-up with primary care provider the next 24 to 48 hours. After performing a Medical Screening Examination, I estimate there is LOW risk for OPEN FRACTURE, COMPARTMENT SYNDROME, TENDON RUPTURE, ACUTE NEUROVASCULAR INJURY, or RETAINED FOREIGN BODY, thus I consider the discharge disposition reasonable. Also, there is no evidence or peritonitis, sepsis, or toxicity. I have reevaluated this patient multiple times and no significant life threatening changes are noted. The patient and I have discussed the diagnosis and risks, and we agree with discharging home with close follow-up with the understanding that symptoms and presentations can change. We also discussed returning to the Emergency Department immediately if new or worsening symptoms occur. We have discussed the symptoms which are most concerning (e.g., changing or worsening pain, fever, numbness, weakness, cool or painful digits) that necessitate immediate return. - Vital Signs Vital signs: Temp Pulse Resp BP Pulse Ox 98.7 F 96 16 133/68 H 99 12/28/19 18:56 12/28/19 18:56 12/28/19 18:56 12/28/19 18:56 12/28/19 18:56 Discharge - Discharge Clinical Impression: Cellulitis Condition: Stable Disposition: HOME, SELF-CARE Instructions: Cellulitis ([facility]), MRSA Cellulitis ([facility]) Additional Instructions: The rash is likely due to infection of your skin. You need to take the antibiotics as prescribed. Do not stop even if the rash goes away until you have completed all the antibiotics. You should also return if you develop fevers with temperature greater than 101, persistent vomiting, worsening pain, or have any other symptoms that are concerning to you. Please take your antibiotics every 6 hours with food. Apply heat 20 minutes on 20 minutes off several times a day to the area that is affected to help bring infection to the head. Take [id number] Tylenol and ibuprofen for pain control Return immediately for any new or worsening symptoms. Follow up with primary care provider, call tomorrow to make followup appointment. Prescriptions: Clindamycin HCl 300 mg PO Q6H #28 capsule Referrals: CLAYTON MARCIAL MD [ACTIVE STAFF] - Follow up as needed
== END 2019-12-28 19:14 | disposition home or self-care (01) ==
LOC: ER 18:53
DX: L03.90 Cellulitis, unspecified (principal); L90.5 Scar conditions and fibrosis of skin; F17.200 Nicotine dependence, unspecified, uncomplicated; J45.909 Unspecified asthma, uncomplicated
CPT/HCPCS: 99283